=== PATIENT | female | born 1965 | race Caucasian/White ===

== ENCOUNTER 2023-06-08 10:58 | Emergency (ER) | payer BC, SELFPAY ==
[2023-06-08] VITALS (12 sets, daily range): BP systolic 119–148; BP diastolic 74–94; PULSE 68–80; RESP 16; TEMP 36.9; O2SAT 96–100; BMI 34.8
--- NOTE | 2023-06-08 11:31 | ED.CHESTPAIN ---
HPI - Chest Pain General Chief Complaint: Chest Pain Stated Complaint: chest pressure, sudden fatigue,nausea Time Seen by Provider: 06/08/23 10:59 History of Present Illness HPI narrative: This 57-year-old female comes in reporting some nausea and burping symptoms that started about 7:00 a.m. this morning. Then she began to have some chest pressure but not pain that started a couple hours prior to arrival. She had nausea but no vomiting. She does not report any lightheadedness, shortness of breath, diaphoresis, or exercise intolerance. She did have a surgery a couple weeks ago so she has been less active recently but states that she has not had any symptoms with exertion. Her symptoms today occurred while at rest. She does not have any cardiac history. She also does not have any cardiac risk factors. She did not think that this was something involving her vital organs but connected with [facility] and was instructed to come into the emergency department for evaluation. She arrives with normal vital signs. She does not describe any chest pressure currently but has some upper epigastric discomfort. Related Data Allergies Allergy/AdvReac Type Severity Reaction Status Date / Time Penicillins Allergy Intermediate Rash Verified 06/08/23 11:08 methylprednisolone AdvReac Headache Verified 06/08/23 11:08 Review of Systems Status of ROS Reports: 10 or more systems reviewed and unremarkable except as noted in History and below Narrative Constitutional: No fevers, no weight gain or loss. Eyes: No discharge. No vision changes. HENT: No congestion, no sore throat, no ear pain. Cardiovascular: No chest pain, no palpitations. She did have some chest pressure as described above. Respiratory: No shortness of breath, no wheezes, no cough. Gastrointestinal: No abdominal pain, no vomiting, no diarrhea. Genitourinary: No dysuria, no hematuria. Musculoskeletal: Normal range of motion. Skin: No rashes, no pruritis. Neurological: No dizziness, weakness, sensory change, speech change. Endo/Heme/Allergies: No bruising or bleeding. No polydipsia. Pysch: no suicidality, no anxiety, no insomnia. All other systems reviewed and are negative. [facility] Social History Smoking Status: Never smoker How often do you have a drink containing alcohol: 2-4 times a month How often do you have six or more drinks on one occasion: Never AUDIT-C Alcohol total score: 2 Non-prescribed substance use: denies use Exam Narrative Exam Narrative: Constitutional: Well-developed, well-nourished, no acute distress. HEENT: Normocephalic, atraumatic. Neck: Normal range of motion. Nontender. Supple. Heart: Regular. No murmurs. Normal rate. Intact distal pulses. Lungs: Clear to auscultation. No chest discomfort. No wheezes, rhonchi, or rales. Abdomen: Normal bowel sounds. Nontender. No rebound tenderness. Mild discomfort in the upper epigastric region. Genitalia: Deferred. Back: No midline tenderness. Normal range of motion. Extremities: Normal range of motion. No injury. Skin: Intact. No rash. Warm. No erythema or pallor. Neurologic: No altered sensation. No weakness. Alert and oriented. Psychiatric: No suicidality. No anxiety or depression. No insomnia. Nursing notes and vitals signs are reviewed. Const Vital Signs, click to edit/add: Vital Signs - 24 hr 06/08/23 11:08 06/08/23 11:13 06/08/23 11:14 Temperature 98.4 F Pulse Rate 80 75 Pulse Rate [Pulse Oximeter] 72 Respiratory Rate 16 Blood Pressure 139/87 Blood Pressure [Right Upper Arm] 148/94 H Pulse Oximetry 99 100 100 Oxygen Delivery Method Room Air 06/08/23 11:15 06/08/23 11:17 06/08/23 11:18 Temperature Pulse Rate 76 74 77 Pulse Rate [Pulse Oximeter] Respiratory Rate Blood Pressure 136/84 Blood Pressure [Right Upper Arm] Pulse Oximetry 99 99 99 Oxygen Delivery Method 06/08/23 11:30 06/08/23 11:32 06/08/23 11:47 Temperature Pulse Rate 73 71 68 Pulse Rate [Pulse Oximeter] Respiratory Rate Blood Pressure 132/86 125/74 Blood Pressure [Right Upper Arm] Pulse Oximetry 97 98 96 Oxygen Delivery Method Course Vital Signs Vital signs: Initial Vital Signs Temperature 98.4 F 06/08/23 11:08 Temperature Source Temporal Artery Scan 06/08/23 11:08 Pulse Rate 72 06/08/23 11:08 Respiratory Rate 16 06/08/23 11:08 Blood Pressure 148/94 H 06/08/23 11:08 Blood Pressure Mean 112 H 06/08/23 11:08 Blood Pressure Position Semi-Fowlers 06/08/23 11:08 Pulse Oximetry 99 06/08/23 11:08 Oxygen Delivery Method Room Air 06/08/23 11:08 Vital Signs Temperature 98.4 F 06/08/23 11:08 Pulse Rate 72 06/08/23 11:08 Respiratory Rate 16 06/08/23 11:08 Blood Pressure 148/94 H 06/08/23 11:08 Pulse Oximetry 99 06/08/23 11:08 Oxygen Delivery Method Room Air 06/08/23 11:08 Temperature 98.4 F 06/08/23 11:08 Pulse Rate 68 06/08/23 11:47 Respiratory Rate 16 06/08/23 11:08 Blood Pressure 125/74 06/08/23 11:47 Pulse Oximetry 96 06/08/23 11:47 Oxygen Delivery Method Room Air 06/08/23 11:08 MDM - Chest Pain MDM Narrative Medical decision making narrative: This patient reports some chest discomfort and upper epigastric discomfort as described above. She does not have any cardiac risk factors. She does not describe any exertional symptoms. Her EKG and lab results today are reassuring. Her troponin returns at 0. Her labs are also normal except for potassium just slightly low at 3.5. Most likely her symptoms are related to her GI tract. I advised using a proton pump inhibitor such as Prilosec, Nexium, or Prevacid. Or she may also use Pepcid or Tagamet. The patient is reassured with these results. She is okay to be discharged home. Lab Data Labs: Lab Results 06/08/23 06/08/23 Range/Units 11:15 11:30 WBC 6.01 (4.50-11.00) K/uL RBC 4.45 (4.00-5.20) m/uL Hgb 12.6 (12.0-16.0) gm/dL Hct 38.4 (33.0-51.0) % MCV 86 (80-100) fL MCH 28 (26-34) pg MCHC 33 (32-36) gm/dL RDW Coeff of Dane 14.1 (11.5-15.5) % Plt Count 263 (140-440) K/uL Neut % (Auto) 59.5 (42.0-72.0) % Lymph % (Auto) 27.5 (20-44) % Gaston % (Auto) 9.0 (0.0-11.0) % Eos % (Auto) 3.5 (0.0-7.0) % Baso % (Auto) 0.3 (0.0-3.0) % Neut # (Auto) 3.58 (1.7-7.0) K/uL Lymph # (Auto) 1.65 (0.90-2.90) K/uL Gaston # (Auto) 0.50 (0.00-0.90) K/UL Eos # (Auto) 0.21 (0.00-0.50) K/uL Baso # (Auto) 0.02 (0.00-0.30) K/uL Abs Immat Gran (auto) 0.01 (0.00-0.30) K/uL Imm/Tot Granulo (auto) 0.2 % Sodium 141 (135-149) mmol/L Potassium 3.5 L (3.6-5.1) mmol/L Chloride 103 (96-114) mmol/L Carbon Dioxide 26 (20-32) mmol/L Anion Gap 12 (7-15) mEq/L Glucose 105 (60-115) mg/dL POC Troponin I 0.00 L (0.01-0.04) ng/ml ECG Data Attestation: I personally reviewed and interpreted this ECG as follows: Interpretation: Normal sinus rhythm. Rate is 74 beats per minute. There are no ST or T-wave abnormalities. Discharge Plan Discharge Clinical Impression: Gastroesophageal reflux disease without esophagitis Patient Disposition: Home, Self-Care Condition: Improved Additional Instructions: Use proton pump inhibitors such as Prilosec, Nexium, or Prevacid as needed and directed. Follow up with MD or return if worsening. Follow Up/Referrals: Beata Saldana MD [Referring] - Stand Alone Forms: [employer] Info Instructions
[2023-06-08 11:46] LABS: Basophils Absolute Auto 0.02 K/uL (0.00-0.30); Basophils Percent Auto 0.3 % (0.0-3.0); Eosinophils Absolute Auto 0.21 K/uL (0.00-0.50); Eosinophils Percent Auto 3.5 % (0.0-7.0); Hematocrit 38.4 % (33.0-51.0); Hemoglobin* 12.6 gm/dL (12.0-16.0); Immature Granulocytes Abs Auto 0.01 K/uL (0.00-0.30); Immature Granulocytes Pct Auto 0.2 %; Lymphocytes Absolute Auto 1.65 K/uL (0.90-2.90); Lymphocytes Percent Auto 27.5 % (20-44); Mean Corpuscular HGB Conc 33 gm/dL (32-36); Mean Corpuscular Hemoglobin 28 pg (26-34); Mean Corpuscular Volume 86 fL (80-100); Neutrophils Absolute Auto 3.58 K/uL (1.7-7.0); Neutrophils Percent Auto 59.5 % (42.0-72.0); Platelet Count* 263 K/uL (140-440); RDW Coefficient of Variation % 14.1 % (11.5-15.5); Red Blood Count 4.45 m/uL (4.00-5.20); White Blood Count* 6.01 K/uL (4.50-11.00)
[2023-06-08 11:47] LABS: Potassium* 3.5 mmol/L (3.6-5.1); Sodium* 141 mmol/L (135-149)
[2023-06-08 11:48] LABS: Anion Gap 12 mEq/L (7-15); Carbon Dioxide* 26 mmol/L (20-32); Chloride* 103 mmol/L (96-114)
[2023-06-08 11:50] LABS: Glucose* 105 mg/dL (60-115)
[2023-06-08 11:58] LABS: Slide Review Reflex No
[2023-06-08 12:58] LABS: Blood Urea Nitrogen* 11 mg/dL (7-30); Calcium* 9.3 mg/dL (8.4-10.6); Creatinine* 0.7 mg/dL (0.5-1.5); Est. Creatinine Clearance* 88.31; Estimated Glomerular Filt Rate 102 ml/min
== END 2023-06-08 12:21 | disposition home or self-care (01) ==
PROVIDERS: Emergency Provider Emergency Medicine Emergency Medical Services; PCP Family Medicine
DX: K21.9 Gastro-esophageal reflux disease without esophagitis (principal)
CPT/HCPCS: 36415; 80048; 84484; 85025; 93005; 99284

== ENCOUNTER 2024-07-14 10:49 | Emergency (ER) | payer OTHER, BC, SELFPAY ==
[2024-07-14] VITALS (7 sets, daily range): BP systolic 123–144; BP diastolic 74–84; PULSE 71–82; RESP 18; TEMP 36.9; O2SAT 97–99; BMI 33.2
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
[2024-07-14] MEDS: ONDANSETRON ODT 4 MG TAB PO (11:55)
--- OUTSIDE RECORDS SUMMARY | 2024-07-14 12:20 | XMS_ITS | Encounter Summary ---
Author Organization [facility] Address [address] [place] [address] Care Team Providers Care Building Carpenter Name Role Phone Adri Davis M.D. Primary Care Provider [phone] Encounter Details Date Type Department Care Team (Late st Contact Info) Description 05/09/2024 Ancillary Procedure Department of Ophthalmology Social History Tobacco Use Types Packs/Day Years Used Date Smoking Tobacco: Never Smokeless Tobacco: Never Alcohol Use Standard Drinks/Week Comments Yes 2 (1 standard drink = 0.6 oz pure alcohol) Sometimes have a glass of hard cider or beer. [facility] Utilities Answer Date Recorded In the past 12 months has [facility] [employer], gas, oil, or water [employer] threatened to shut off services in your home? No 04/18/2024 Humiliation, Afraid, Rape, and Kick questionnair e Answer Date Recorded Within the last year, have y ou been afraid of your partner or ex-partner? No 11/10/2022 Within the last year, have y ou been humiliated or emotionally abused in other ways by your partner or ex-partner? No Within the last year, have y ou been kicked, hit, slapped, or otherwise physically hurt by your partner or ex-partner? No 11/10/2022 Within the last year, have y ou been raped or forced to have any kind of sexual activity by your partner or ex-partner? No 11/10/2022 Social Connection and Isolat ion Panel [NHANES] Answer Date Recorded In a typical week, how many times do you talk on the phone with family, friends, or neighbors? More than three times a week 11/10/2022 How often do you get togethe r with friends or relatives? More than three times a week 11/10/2022 How often do you attend chur ch or methodist services? 1 to 4 times per year 11/10/2022 Do you belong to any clubs o r organizations such as yazidi groups, unions, fraternal or athletic groups, or school groups? Yes 11/10/2022 How often do you attend meet ings of the clubs or organizations you belong to? More than 4 times per year 11/10/2022 Are you , , di vorced, , never , or living with a partner? Living with partner 11/10/2022 AUDIT-C Answer Date Recorded Q1: How often do you have a drink containing alc ohol? 2-4 times a month 11/10/2022 Q2: How many drinks containi ng alcohol do you have on a typical day when you are drinking? 1 or 2 11/10/2022 Q3: How often do you have si x or more drinks on one occasion? Never 11/10/2022 Overall Financial Resource Strain (CARDIA) Answe r Date Recorded How hard is it for you to pa y for the very basics like food, housing, medical care, and heating? Not hard at all 11/10/2022 PHQ-2 Answer Date Recorded PHQ-2 Score 0 04/24/2024 [facility] - Occupational Stress Questionnaire Answer Date Recorded Do you feel stress - tense, restless, nervous, or anxious, or unable to sleep at night because your mind is troubled all the time - these days? Only a little 11/10/2022 Exercise Vital Sign Answer Date Recorde d On average, how many days pe r week do you engage in moderate to strenuous exercise (like a brisk walk)? 7 days 02/28/2024 On average, how many minutes do you engage in exercise at this level? 40 min 02/28/2024 Hunger Vital Sign Answer Date Recorded Within the past 12 months, y ou worried that your food would run out before you got the money to buy more. Never true 04/18/20 24 Within the past 12 months, t he food you bought just didn't last and you didn't have money to get more. Never true 04/18/2024 PRAPARE - Transportation Answer Date Re corded In the past 12 months, has l ack of transportation kept you from medical appointments or from getting medications? No 04/06 In the past 12 months, has l ack of transportation kept you from meetings, work, or from getting things needed for daily living? No 04/18/2024 Depression Answer Date Recor ded PHQ-9 Total Score (max 27) 1 04/24 Nutrition Answer Date Recorded On average, how many serving s of fruits and vegetables do you eat per day (serving size is equal to 1 cup or approximately the size of a tennis ball)? 3-5 02/28/2024 Dental Answer Date Recorded Dental: Regular Dentist Yes 10/29/19 Employment Answer Date Recorded Employment status Employed and actively working without restrictions 02/28/2024 Housing Stability Answer Date Recorded What is your living situation today? I have a [facility] place to live 04/18/2024 Education Answer Date Recorded What is the highest level of school you have completed or the highest degree you have received? 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 The clinical documentation to support these images can be found on the encounter that produced images. us Provider Not In System IMG NON RAD IMAGING PROCE DURES Final Result [facility] NA documented in this encounter Visit Diagnoses Not on filedocumented in this encounter Additional Health Concerns Assessment Noted Time PHQ-9 Depression Total Score: 1 04/24/20 24 10:44 AM CDT documented as of this encounter Care Teams Building Carpenter Relationship Specialty Start Date End Date Adri Davis M.D. [address] [place] [address] [phone] PCP - General Family Medicine 10/28/22 documented as of this encounter
--- OUTSIDE RECORDS SUMMARY | 2024-07-14 12:20 | XMS_ITS | Encounter Summary ---
Author Organization [facility] Address [address] [place] [address] Care Team Providers Care Mba Intern Name Role Phone Adri Davis M.D. Primary Care Provider [phone]- [phone] Reason for Visit * Reason Onset Date Comments Med Refill 06/20/2024 Encounter Details Date Type Department Care Team (Late st Contact Info) Description 06/20/2024 Refill Department of Family Medicine, [facility], in [address] [phone] Adri Davis M.D. [address] [place] [phone] Med Refill Social History Tobacco Use Types Packs/Day Years Used Date Smoking Tobacco: Never Smokeless Tobacco: Never Alcohol Use Standard Drinks/Week Comments Yes 2 (1 standard drink = 0.6 oz pure alcohol) Sometimes have a glass of hard cider or beer. [facility] Utilities Answer Date Recorded In the past 12 months has [employer], gas, oil, or water company threatened to shut off services in your [...] often do you attend chur ch or hinduism services? 1 to 4 times per year 11/10/2022 Do you belong to any clubs o r organizations such as buddhist groups, unions, fraternal or athletic groups, or [...] Answer Date Recorded PHQ-2 Score 0 04/24/2024 [facility] Occupat ional [facility] - Occupational Stress [...] money to buy more. Never true 04/18/20 Within the past 12 months, t he [...] your living situation today? I have a [facility] place to live 04/18/2024 Education Answer Date Recorded What is the highest level of school you have completed or the highest degree you have received? 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 Nurse review: Med Refill Team is unable to forward request to provider. Drug Change Request for Lexapro. Patient recently requested a refill for sertraline because lexaprowas not approved by insurance. Primary Provider: Adri Davis M.D. documented in this encounter Plan of Treatment Not on file documented as of this encounter Visit Diagnoses Not on filedocumented in this encounter Additional Health Concerns Assessment Noted Time PHQ-9 Depression Total Score: 1 04/24/20 24 10:44 AM CDT documented as of this encounter Care Teams Mba Intern Relationship Specialty Start Date End Date Adri Davis M.D. [address] [place] [address] [phone] PCP - General Family Medicine 10/28/22 documented as of this encounter
--- OUTSIDE RECORDS SUMMARY | 2024-07-14 12:20 | XMS_ITS ---
Author Organization [facility] Address [address] [place] [address] Care Team Providers Care Aircraft Inspection Record Clerk Name Role Phone Unavailable Unavailable Unavailable Surgery Details Not on file Complications Check Surgery Details section. Procedure Estimated Blood Loss Check Surgery Details section. Procedure Findings Check Surgery Details section. Procedure Specimens Taken Check Surgery Details section.
--- OUTSIDE RECORDS SUMMARY | 2024-07-14 12:20 | XMS_ITS | Encounter Summary ---
Author Organization [facility] Address [address] [place] [address] Care Team Providers Care Windsmith Name Role Phone Adri Davis M.D. Primary Care Provider [phone]- [phone] Reason for Visit * Reason Onset Date Comments PandaDoc Form 06/01/2024 Gwyneber - PT 04/07 1 Encounter Details Date Type Department Care Team (Latest Contact Info) Description 06/01/2024 Clinical Communication Department of Family Medicine, [facility], in [address] [phone] Adri Davis M.D. [address] [place] [phone] PandaDoc Form (Wieber - PT 04/26) Social History Tobacco Use Types Packs/Day Years Used Date Smoking Tobacco: Never Smokeless Tobacco: Never Alcohol Use Standard Drinks/Week Comments Yes 2 (1 standard drink = 0.6 oz pure alcohol) Sometimes have a glass of hard cider or beer. [facility] Utilities Answer Date Recorded In the past 12 months has [facility] [employer], gas, oil, or water [employer] threatened to shut off services in your [...] 11/10/2022 How often do you attend chur or gnosticism services? 1 to 4 times per year 11/10/2022 Do you belong to any clubs o r organizations such as lutheran groups, unions, fraternal or athletic groups, or [...] Answer Date Recorded PHQ-2 Score 0 04/24/2024 [facility] - [...] your living situation today? I have a [facility] place to live 04/18/2024 Education Answer Date Recorded What is the highest level of school you have completed or the highest degree you have received? 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 Form faxed back to the listed facility. Scanned into [facility] * Telephone Encounter - Rosi Healy - 06/01/2024 5:06 PM CDT Form was routed to Dr Davis for electronic review/signature. MANAGER LINUX: [facility] Physical Therapy PHONE NUMBER: [phone] INFO REQUESTED: PT 04/26 INSTRUCTIONS: Fax form to [phone] documented in this encounter Plan of Treatment Not on file documented as of this encounter Visit Diagnoses Not on filedocumented in this encounter Additional Health Concerns Assessment Noted Time PHQ-9 Depression Total Score: 1 04/24/20 24 10:44 AM CDT documented as of this encounter Care Teams Windsmith Relationship Specialty Start Date End Date Adri Davis M.D. [address] [place] [phone] PCP - General Family Medicine 10/28/22 documented as of this encounter
--- OUTSIDE RECORDS SUMMARY | 2024-07-14 12:20 | XMS_ITS | Encounter Summary ---
Author Organization [facility] Address [address] [place] [address] Care Team Providers Care Parachute Panel Joiner Name Role Phone Adri Davis M.D. Primary Care Provider [phone]- [phone] Encounter Details Date Type Department Care Team (Latest Contact Info) Description 05/09/2024 2:10 PM CDT Office Visit Division of Endocrinology in [place], [place] [address] [place] [phone] María Elena Price M.D. [address] [place] [phone] Nodule Thyroid Nontoxic (Primary Dx) Social History Tobacco Use Types Packs/Day Years Used Date Smoking Tobacco: Never Smokeless Tobacco: Never Alcohol Use Standard Drinks/Week Comments Yes 2 (1 standard drink = 0.6 oz pure alcohol) Sometimes have a glass of hard cider or beer. [facility] Utilities Answer Date Recorded In the past 12 months has [employer] gas, oil, or water [employer] threatened to shut off services in your [...] often do you attend chur ch or oriental orthodox services? 1 to 4 times per year 11/10/2022 Do you belong to any clubs o r organizations such as yarsanism groups, unions, fraternal or athletic groups, or [...] Answer Date Recorded PHQ-2 Score 0 04/24/2024 [facility] - Occupational Stress [...] your living situation today? I have a [facility] place to live 04/18/2024 Education Answer Date Recorded What is the highest level of school you have completed or the highest degree you have received? 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 - 05/09/2024 2:10 PM CDT SUBJECTIVE HISTORY OF PRESENT ILLNESS I visited with Esperanza along with Dr. Morgan to review with her the results of our case [facility]with [facility]. ASSESSMENT / PLAN #1 Hypothyroidism, on levothyroxine therapy Good control and no need for changes here. #2 Thyroid nodules These were not suspicious last year, but I think it is reasonable to proceed with ultrasound, as wediscussed. #3 Eye dryness with concerns about thyroid eye disease At this point, no clear features for thyroid eye disease. Recommendations made by Dr. Morgan aboutdealing with the dryness. I will follow with her once the antibody levels are available and they will be a useful tool if we need to keep a closer eye on her autoimmune status. No charge, same-day visit. María Elena Price M.D. CT CT Job ID: [id number] documented in this encounter Plan of Treatment Not on file documented as of this encounter Visit Diagnoses Diagnosis Nodule Thyroid Nontoxic- Primary documented in this encounter Additional Health Concerns Assessment Noted Time PHQ-9 Depression Total Score: 1 04/24/20 24 10:44 AM CDT documented as of this encounter Care Teams Parachute Panel Joiner Relationship Specialty Start Date End Date Adri Davis M.D. [address] [place] [phone] PCP - General Family Medicine 10/28/22 documented as of this encounter
--- OUTSIDE RECORDS SUMMARY | 2024-07-14 12:20 | XMS_ITS | Referral Summary ---
Author Organization [facility] Address [address] [place] [address] Care Team Providers Care Organ Builder Name Role Phone Adri Davis M.D. Primary Care Provider [phone]- [phone] Source Comments Patient records contain information from all sites at [facility]. For routine questions regarding patient records, call [phone] during business hours, M-F 8:00 AM - 5:00 PM Central Time. Record requests for emergency care only can be directed to [phone] at any time.[facility] Encounters Date Type Department Care Team Description 07/14/2024 Nurse Triage Department of Family [facility], [facility], [address] [phone] Yasmeen Viera R.N. Altered Mental Status 06/20/2024 Refill Department of Family Medicine, [facility], [address] [phone] Adri Davis M.D. Med Refill 06/01/2024 Clinical Communication Department of Family Medicine, [facility], [address] [phone] Adri Davis M.D. PandaDo Form (Ninaer - PT 04/26) 05/27/2024 Refill Department of Family Medicine, [facility], in [place] [phone] Adri Davis M.D. Med Refill 05/16/2024 Ancillary Procedure Department of Ophthalmology 05/09/2024 Ancillary Procedure Department of Ophthalmology 05/09/2024 2:10 PM CDT Office Visit Division of Endocrinology in [place], [place] [address] [place] [phone] María Elena Price M.D. Nodule Thyroid Nontoxic (Primary Dx) 05/09/2024 1:30 PM CDT Office Visit Department of Ophthalmology in [place], [place] [address] [place] [phone] Mary Morgan M.D. Hypothyroidism Acquired (Primary Dx) 05/09/2024 10:00 AM CDT Comprehensive Visit Division of Endocrinology in [place], [place] [address] [place] [phone] María Elena Price M.D. Graves' Disease 05/09/2024 6:49 AM CDT - 05/09/2024 11:59 PM CDT Hospital Encounter Department of Laboratory Medicine and Pathology, [facility] in [place], [place] [address] [place] [phone] Hardy Willett M.D. Graves' Disease Discharge Disposition: Home or Self Care 05/09/2024 9:00 AM CDT Comprehensive Visit Department of Ophthalmology in [address] [phone] Mary Morgan M.D. Hypothyroidism Acquired 05/08/2024 Documentation Department of Ophthalmology in [address] [phone] Tony Verduzco M.D. 05/02/2024 Refill Department of Family Medicine, [facility], in [address] [address] Adri Davis M.D. Med Refill 04/25/2024 9:21 AM CDT - 04/25/2024 11:59 PM CDT Hospital Encounter Department of Radiology in [address] [phone] Adri Davis M.D. Pain Wrist Left Discharge Disposition: Home or Self Care 04/25/2024 8:30 AM CDT Office Visit Department of Family Medicine, [facility], in [address] [phone] Adri Davis M.D. Health Maintenance Examination Adult (Primary Dx); Asymptomatic Menopausal State; Screening Osteoporosis; Pain Wrist Left; Hypermobility Syndrome; Anxiety Generalized Disorder; Depression Major One Episode Full Remission (HCC); Asthma Mild Intermittent (HCC) Discharge Disposition: Home or Self Care 04/24/2024 8:36 AM CDT - 04/24/2024 11:59 PM CDT Hospital Encounter Department of Radiology in [address] [phone] Adri Davis M.D. Screening Mammogram Average Risk Patient Discharge Disposition: Home or Self Care 04/24/2024 8:30 AM CDT - 04/24/2024 8:35 AM CDT Hospital Encounter Department of Laboratory Medicine in [address] [phone] Adri Davis M.D. Hyperlipidemia Discharge Disposition: Home or Self Care from Last 3 Months Allergies Active Allergy Reactions Criticality Noted Date Comments Rhome Other (see comments) 04/26/2021 Thyroid reaction Rhome Starch Other (see comments) 06/26/2021 Doxycycline GI intolerance 10/27/2018 Milk Other (see comments) 03/26/2023 Cow milk Nickel Itching 11/16/2022 Penicillins Shortness of breath (Reselect Reaction),Hives (Reselect Reaction),Itching,Rash 04/18/2003 PN: LW Reaction: Rash, Generalized PN: LW Reaction: Rash, Generalized Prednisone Headache 04/18/2003 Tapioca Other (see comments),Shortness of breath (Reselect Reaction) 10/20/2022 Cassava/thyroid reaction Medications * This document contains information received from the source organization and may not represent a complete record from that organization. acetaminophen (TYLENOL) 500 mg tablet Take 1,000 mg by mouth as needed. 9 Active loratadine (CLARITIN) 10 mg tablet Take 10 mg by mouth as needed. 2 Active olopatadine (PATANOL) 0.1 % ophthalmic solution Administer 1 drop into both eyes as needed. 6 Active multivitamin capsule Take by mouth daily. 4 Active levothyroxine sodium (TIROSINT) 75 mcg capsule Take 1 capsule (75 mcg total) by mouth every morning before breakfast. 90 capsule 3 3 Active magnesium citrate solution Take by mouth once. Active ipratropium-al buteroL (Combivent Respimat) 20-100 mcg/actuation inhaler Inhale 1 puff as needed for wheezing. 4 g 3 4 Active sertraline (Zoloft) 25 mg tablet Take 0.5 tablets (12.5 mg total) by mouth daily. 45 tablet 3 4 Active escitalopram (Lexapro) 5 mg tablet Take 1 tablet (5 mg total) by mouth daily. 90 tablet 3 4 Active escitalopram (Lexapro) 5 mg tablet Take 1 tablet (5 mg total) by mouth daily. 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 Follow-up at 1, 2, 3 and 5 year intervals recommended. Next due 10/2023. Depression Major One Episode Full Remission 02/2012 Anxiety Generalized Disorder 05/28/2009 Asthma Mild Intermittent 03/11/2006 Overview (03/26/2023): URI triggers. Hyperlipidemia 03/13/2005 Immunizations Name Administration Dates Next Due H1N1 All Forms 08/14/2009 HepA Adult 02/08/2013 HepB Adult (HEPLISAV-B) 04/25/2024 Influenza TIV (IM) 06/17/2012,08/06/1999 Influenza, Injectable, Quadrivalent 06/14/2019,1 Influenza, Seasonal, Injectable 06/17/2012,08/06 Influenza, Unspecified 06/22/2016,2011,06/13/2004,1998 PCV13 09/08/1999 PPSV23 06/22/2016,09/08/1999 RZV (SHINGRIX) 02/26/2020,11/09/2019 Td (Adult), adsorbed 10/27/2018,04/19/2003 Tdap 04/29/2009 Ty21a (oral) 02/08/2013 influenza trivalent vaccine (6 months and older)(PF) 06/13/2004 influenza vaccine quad (FLUZONE/FLUARIX) (6 months and older)(PF) 08/23/2023,06/16/2022,06/19/2021,2018,09/09/2017 Social History Tobacco Use Types Packs/Day Years Used Date Smoking Tobacco: Never Smokeless Tobacco: Never Tobacco Cessation:Counseling Given: Not Answered Alcohol Use Standard Drinks/Week Comments Yes 2 (1 standard drink = 0.6 oz pure alcohol) Sometimes have a glass of hard cider or beer. [facility] [employer] Answer Date Recorded In the past 12 months has e [employer], oil, or water [employer] threatened to shut off services in your [...] often do you attend chur ch or cheondoism services? 1 to 4 times per year 11/10/2022 Do you belong to any clubs o r organizations such as yazidism groups, unions, fraternal or athletic groups, or [...] Answer Date Recorded PHQ-2 Score 0 04/24/2024 [facility] - Occupational Stress Questionnaire Answer Date Recorded [...] your living situation today? I have a [facility] place to live 04/18/2024 Education Answer Date Recorded What is the highest level of school you have completed or the highest degree you have received? 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 Gender Identity Female 11/21/2022 8:10 AM CDT Sexual Orientation Straight 11/21/2022 8: 10 AM CDT Last Filed Vital Signs Vital Sign Reading Time Taken Comments Blood Pressure 116/77 04/25/2024 8:26 AM CDT Pulse 80 04/25/2024 8:26 AM CDT Temperature 37.1 ??C (98.8 ??F) 04/25/2024 8:26 AM CD T Respiratory Rate 18 05/05/2023 9:04 AM CDT Oxygen Saturation 98% 04/25/2024 8:26 AM CDT Inhaled Oxygen Concentration - - Weight 95 kg (209 lb 7 oz) 04/25/2024 8:26 AM CD T Height 170.3 cm (5' 7.05) 04/25/2024 8:26 AM CD T Body Mass Index 32.76 04/25/2024 8:26 AM CDT Plan of Treatment Not on file Medical Devices Implanted Type Area Animal Killer Device Identifier Shelf Expiration Date Model / Serial / Lot Hip Implant Hip Implant Bilateral : Hip Procedures Procedure Name Priority Date/Time Associated Diagnosis Comments OPHTHALMOLOGY IMAGE EXAM Routine 05/16/2024 12:00 AM CDT PHOTOGRAPHY - MEDICAL Routine 05/09/2024 11:10 AM CDT Graves' Disease CBC WITH DIFFERENTIAL, B Routine 05/09/2024 7:01 AM CDT Graves' Disease THYROID-STIMULATING IMMUNOGLOBULIN (TSI), S Routine 05/09/2024 7:00 AM CDT Graves' Disease THYROTROPIN RECEPTOR AB, S Routine 05/09/2024 7:00 AM CDT Graves' Disease ALANINE AMINOTRANSFERASE (ALT), S/P Routine 05/09/2024 7:00 AM CDT Graves' Disease ALKALINE PHOSPHATASE, S/P Routine 05/09/2024 7:00 AM CDT Graves' Disease THYROID-STIMULATING HORMONE-SENSITIVE (S-TSH) Routine 05/09/2024 7:00 AM CDT Graves' Disease T4 (THYROXINE), FREE, S Routine 05/09/2024 7:00 AM CDT Graves' Disease OPHTHALMOLOGY IMAGE EXAM Routine 05/09/2024 12:00 AM CDT DX WRIST LEFT 3+ VIEWS RAD - Routine (most inpatients and all outpatients) 04/25/2024 9:30 AM CDT Pain Wrist Left LIPID PANEL, S Routine 04/24/2024 8:58 AM CDT Hyperlipidemia BI BREAST SCREENING BILATERAL WITH TOMOSYNTHESIS RAD - Routine (most inpatients and all outpatients) 04/24/2024 8:49 AM CDT Screening Mammogram Average Risk Patient BASIC METABOLIC PANEL, S/P Routine 05/05/2023 9:42 AM CDT Preoperative Exam HPV WITH GENOTYPING, PCR, THINPREP Routine 03/26/2023 12:31 PM CDT from Last 3 Months or Most Recently Relevant to Health Maintenance Results * Eyes External-Ophthalmology Image Exam (05/16/2024 12:00 AM CDT) Only the most recent of2 resultswithin the time period is included. Narrative IIMS - 05/16/2024 12:44 PM CDT This order has been created and auto-finalized to support the import of images acquired without order. The clinical documentation to support these images can be found on the encounter that produced images. us Provider Not In System IMG NON RAD IMAGING PROCE DURES Final Result IITX NA * CBC with Differential, Blood (05/09/2024 7:01 AM CDT) Hemoglobin 12.5 11.6 - 15.0 g/dL 05/09/2024 7:42 AM CDT DTL Hematocrit 38.8 35.5 - 44.9 % 05/09/2024 7:42 AM CDT DTL Erythrocytes 4.42 3.92 - 5.13 x10(12)/L 05/09/2024 7:42 AM CDT DTL MCV 87.8 78.2 - 97.9 fL 05/09/2024 7:42 AM CDT DTL RBC Distrib Width 14.3 12.2 - 16.1 % 05/09/2024 7:42 AM CDT DTL Platelet Count 272 157 - 371 x10(9)/L 05/09/2024 7:42 AM CDT DTL Leukocytes 5.2 3.4 - 9.6 x10(9)/L 05/09/2024 7:42 AM CDT DTL Neutrophils 2.93 1.56 - 6.45 x10(9)/L 05/09/2024 7:42 AM CDT DHPM Lymphocytes 1.43 0.95 - 3.07 x10(9)/L 05/09/2024 7:42 AM CDT DTL Monocytes 0.62 0.26 - 0.81 x10(9)/L 05/09/2024 7:42 AM CDT DTL Eosinophils 0.21 0.03 - 0.48 x10(9)/L 05/09/2024 7:42 AM CDT DTL Basophils 0.03 0.01 - 0.08 x10(9)/L 05/09/2024 7:42 AM CDT DTL Blood (Blood, Venous) 05/09/2024 7:01 AM CDT 05/09/2024 7:32 AM CDT us Hardy Willett M.D. LAB BLOOD ADD-ON Final Resu lt [facility] [address] [place] [address], [facility] [address] [place] [address] [facility] [address] [place] [address] * Thyroid-Stimulating Immunoglobulin (TSI) (05/09/2024 7:00 AM CDT) Pathologist [facility] Thyroid-Stimula ting Immunoglob, S <1.0 <=1.3 TSI index 05/22/2024 1:16 PM CDT [facility] Blood (Blood, Venous) 05/09/2024 7:00 AM CDT 05/09/2024 10:55 AM CDT us Hardy Willett M.D. LAB BLOOD ADD-ON Final Resu lt [facility] [address] [place] [address] [facility] [address] [place] [address] [place] [address] * Thyrotropin Receptor Antibody (05/09/2024 7:00 AM CDT) Thyrotropin Receptor Ab, S <1.10 0.00 - 1.75 IU/L 05/09/2024 5:05 PM CDT [facility] Comment: ----ADDITIONAL INFORMATION---- At a decision limit of 1.75 IU/L, this assay has 97% sensitivity and 99% specificity for detection of Graves' disease. In healthy individuals and in patients with thyroid disease without diagnosis of Graves' disease, the upper limit of anti-TSHR values are 1.22 IU/L and 1.58 IU/L, respectively (97.5th percentiles). Blood (Blood, Venous) 05/09/2024 7:00 AM CDT 05/09/2024 3:58 PM CDT Hardy Willett M.D. LAB BLOOD ADD-ON Final Resu lt [facility] [address] [place] [address] [facility] [address] [place] [address] * ALT (Alanine Aminotransferase) (05/09/2024 7:00 AM CDT) Alanine Aminotransferase (ALT), S 21 7 - 45 U/L 05/09/2024 8:27 AM CDT DT Blood (Blood, Venous) 05/09/2024 7:00 AM CDT 05/09/2024 7:49 AM CDT Hardy Willett M.D. LAB BLOOD ADD-ON Final Resu lt [facility] [address] [place] [address], [place] [facility] [address] [place] [address] * S-TSH (Thyroid-Stimulating Hormone - Sensitive) (05/09/2024 7:00 AM CDT) TSH, Sensitive 2.5 0.3 - 4.2 mIU/L 05/09/2024 8:27 AM CDT DT Blood (Blood, Venous) 05/09/2024 7:00 AM CDT 05/09/2024 7:49 AM CDT Hardy Willett M.D. LAB BLOOD ADD-ON Final Resu lt Performing Organization Address City/[facility]/ZIP Co de Phone Number [facility] [address] [place] [address], [facility] [address] [place] [address] * T4 (Thyroxine), Free (05/09/2024 7:00 AM CDT) T4 (Thyroxine), Free, S 1.1 0.9 - 1.7 ng/dL 05/09/2024 8:27 AM CDT DTL Blood (Blood, Venous) 05/09/2024 7:00 AM CDT 05/09/2024 7:49 AM CDT us Hardy Willett M.D. LAB BLOOD ADD-ON Final Resu lt Performing Organization Address City/[facility]/RUST Co de Phone Number [facility] [address] [place] [address], [facility] [address] [place] [address] * Alkaline Phosphatase (05/09/2024 7:00 AM CDT) Alkaline Phosphatase, S 54 35 - 104 U/L 05/09/2024 8:27 AM CDT DTL Blood (Blood, Venous) 05/09/2024 7:00 AM CDT 05/09/2024 7:49 AM CDT us Hardy Willett M.D. LAB BLOOD ADD-ON Final Resu lt Performing Organization Address City/[facility]/ZIP Co de Phone Number [facility] [address] [place] [address], [facility] [address] [place] [address] * DX Wrist Left 3+ Views (04/25/2024 9:30 AM CDT) Anatomical Region Laterality Modality Upper Extremity, Wrist, Musc uloskeletal RST LOS, Musculoskeletal ARZ LOS, Muskuloskeletal FLA LOS Left Digit al Radiography Impressions 04/25/2024 9:38 AM CDT No evidence of acute fracture or malalignment. Mild scattered polyarticular degenerative changes. Narrative 04/25/2024 9:38 AM CDT EXAM: DX WRIST LEFT 3+ VIEWS Procedure Note Epifanio Fish M.D. - 04/25/2024 EXAM: DX WRIST LEFT 3+ VIEWS IMPRESSION: No evidence of acute fracture or malalignment. Mild scatteredpolyarticular degenerative changes. us Adri Davis M.D. IMG DIAGNOSTIC IMAGING PRO CEDURES Final Result * (ABNORMAL) Lipid Panel (04/24/2024 8:58 AM CDT) Triglycerides 120 mg/dL 04/24/2024 9:21 AM CDT [facility] Comment: ----REFERENCE VALUE---- Normal: <150 mg/dL Borderline High: 150-199 mg/dL High: 200-499 mg/dL Very High: > or =500 mg/dL Cholesterol, Total 226(H) mg/dL 2023 9:21 AM CDT [facility] Comment: ----REFERENCE VALUE---- Desirable: < 200 mg/dL Borderline High: 200 - 239 mg/dL High: > or = 240 mg/dL Cholesterol, LDL, Calculated 140(H) mg/dL 04/24/2024 9:21 AM CDT [facility] Comment: ----REFERENCE VALUE---- Desirable: <100 mg/dL Above Desirable: 100-129 mg/dL Borderline High: 130-159 mg/dL High: 160-189 mg/dL Very High: >=190 mg/dL ----ADDITIONAL INFORMATION---- LDL cholesterol calculated using the Arguello/NIH equation. Cholesterol, HDL 65 >=50 mg/dL 04/24/20 9:21 AM CDT [facility] Cholesterol, Non-HDL, Calculated 161(H) mg/dL 04/24/2024 9:21 AM CDT [facility] Comment: ----REFERENCE VALUE---- Desirable: <130 mg/dL Above Desirable: 130-159 mg/dL Borderline High: 160-189 mg/dL High: 190-219 mg/dL Very High: > or =220 mg/dL Fasting (8 HR or more) Yes 04/24/2024 8:58 AM CDT [facility] Blood (Blood, Venous) 04/24/2024 8:58 AM CDT 04/24/2024 9:01 AM CDT us Adri Davis M.D. LAB BLOOD ADD-ON Final Res ult [facility] [address] [place] [address], [facility] in [address] [address] * BI Breast Screening Bilateral with Tomosynthesis (04/24/2024 8:49 AM CDT) Anatomical Region Laterality Modality Breast, Breast Imaging RST L OS, Breast Imaging ARZ LOS, Breast Imaging FLA LOS Bilateral Mammography Impressions 04/24/2024 3:23 PM CDT Negative. RECOMMENDATION: ??Annual Screening Mammogram ASSESSMENT: ??BI-RADS: 1: Negative. Narrative 04/24/2024 3:23 PM CDT EXAM: ??BI BREAST SCREENING BILATERAL WITH TOMOSYNTHESIS Current study was evaluated with a Computer Aided Detection (CAD) system. INDICATION: ??Screening mammogram. COMPARISON: ??Prior exam(s) were available and reviewed for comparison. DENSITY: ??b. There are scattered areas of fibroglandular density. FINDINGS: ??No mammographic findings of malignancy. Procedure Note Tina Tidwell D.O. - 04/24/2024 EXAM: BI BREAST SCREENING BILATERAL WITH TOMOSYNTHESIS Current study was evaluated with a Computer Aided Detection (CAD) system. INDICATION: Screening mammogram. COMPARISON: Prior exam(s) were available and reviewed for comparison. DENSITY: b. There are scattered areas of fibroglandular density. FINDINGS: No mammographic findings of malignancy. IMPRESSION: Negative. RECOMMENDATION: Annual Screening Mammogram ASSESSMENT: BI-RADS: 1: Negative. us Adri Davis M.D. IMG BI PROCEDURES Final Re sult * Basic Metabolic Panel (05/05/2023 9:42 AM CDT) Potassium, P 4.1 3.6 - 5.2 mmol/L 05/05/2023 10:08 AM CDT [facility] Sodium, P 138 135 - 145 mmol/L 05/05/2023 10:08 AM CDT [facility] Chloride, P 103 98 - 107 mmol/L 05/05/2023 10:08 AM CDT [facility] Bicarbonate, P 27 22 - 29 mmol/L 05/05/2023 10:08 AM CDT [facility] Anion Gap, P 8 7 - 15 05/05/2023 10:08 AM CDT [facility] BUN (Blood Urea Nitrogen), P 10 6 - 21 mg/dL 05/05/2023 10:08 AM CDT [facility] Creatinine 0.82 0.59 - 1.04 mg/dL 05/05/2023 10:08 AM CDT [facility] Estimated GFR (eGFR) 84 >=60 mL/min/BSA 05/05/2023 10:08 AM CDT [facility] Comment: Estimated GFR calculated using the 2020 CKD_EPI creatinine equation. Calcium, Total, P 9.7 8.6 - 10.0 mg/dL 05/05/2023 10:08 AM CDT [facility] Glucose, P 101 70 - 140 mg/dL 05/05/2023 10:08 AM CDT [facility] Blood (Blood, Venous) 05/05/2023 9:42 AM CDT 05/05/2023 9:44 AM CDT us Simón Pitt M.D., Ph.D. LAB BLOOD ADD-ON Final Result [facility] [address] [place] [id number], [place] [facility] in [address] [address] * HPV with Genotyping, PCR, ThinPrep (03/26/2023 12:31 PM CDT) HPV with Genotyping, ThinPrep, PCR Negative Negative 03/29/2023 2:24 PM CDT [facility] Comment: Negative for high risk HPV by nucleic acid amplification. ??The following high risk HPV types were not detected: 16, 18, 31, 33, 35, 39, 45, 51, 52, 56, 58, 59, 66, and 68 This result does not rule out HPV in the patient, as the sensitivity of the test depends on the timing of the specimen collection and the quality of the specimen. Result should be correlated with patient's history, clinical presentation, and LIQUID HYDROGEN PLANT OPERATOR cytology report. 03/26/2023 12:3 1 PM CDT 03/29/2023 10:19 AM CDT Adri Davis M.D. LAB MICROBIOLOGY - GENERAL ORDERABLES Final Result [facility] [address] [place] [address], [facility] ECLR [address] [place] [phone] from Last 3 Months or Most Recently Relevant to Health Maintenance Insurance [facility] [employer] Advance Directives For more information, please contact: [phone] Documents on File Type Date Recorded Patient Reserve Operator Expl anation Advance Directives 01/16/2013 12:00 AM Leg acy document. See document viewer. Care Teams Organ Builder Relationship Specialty Start Date End Date Adri Davis M.D. [address] [place] [phone] PCP - General Family Medicine 10/28/22
--- OUTSIDE RECORDS SUMMARY | 2024-07-14 12:20 | XMS_ITS | Encounter Summary ---
Author Organization [facility] Address [address] [place] [address] Care Team Providers Care Presser All Around Name Role Phone Adri Davis M.D. Primary Care Provider [phone] Encounter Details Date Type Department Care Team (Late st Contact Info) Description 05/16/2024 Ancillary Procedure Department of Ophthalmology Social History Tobacco Use Types Packs/Day Years Used Date Smoking Tobacco: Never Smokeless Tobacco: Never Alcohol Use Standard Drinks/Week Comments Yes 2 (1 standard drink = 0.6 oz pure alcohol) Sometimes have a glass of hard cider or beer. [facility] Utilities Answer Date Recorded In the past 12 months has [facility] [employer], gas, oil, or water [employer] threatened to shut off services in your [...] often do you attend chur ch or faith services? 1 to 4 times per year 11/10/2022 Do you belong to any clubs o r organizations such as restorationism groups, unions, fraternal or athletic groups, or [...] Answer Date Recorded PHQ-2 Score 0 04/24/2024 [facility] - Occupational Stress [...] your living situation today? I have a [facility] place to live 04/18/2024 Education Answer Date Recorded What is the highest level of school you have completed or the highest degree you have received? 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 [address] [place] [phone] PCP - General Family Medicine 10/28/22 documented as of this encounter
--- OUTSIDE RECORDS SUMMARY | 2024-07-14 12:20 | XMS_ITS | Encounter Summary ---
Author Organization [facility] Address [address] [place] [address] Care Team Providers Care Developer Evangelist Name Role Phone Adri Davis M.D. Primary Care Provider +1- [phone] Reason for Visit * Reason Comments Med Refill Encounter Details Date Type Department Care Team (Late st Contact Info) Description 05/27/2024 Refill Department of Family Medicine, [facility], in [address] [phone] Adri Davis M.D. [address] [place] [phone] Med Refill Social History Tobacco Use Types Packs/Day Years Used Date Smoking Tobacco: Never Smokeless Tobacco: Never Alcohol Use Standard Drinks/Week Comments Yes 2 (1 standard drink = 0.6 oz pure alcohol) Sometimes have a glass of hard cider or beer. [facility] Utilities Answer Date Recorded In the past 12 months has [facility] [employer], gas, oil, or water [employer] threatened to shut off services in your [...] often do you attend chur ch or episcopal services? 1 to 4 times per year 11/10/2022 Do you belong to any clubs o r organizations such as baptism groups, unions, fraternal or athletic groups, or [...] Answer Date Recorded PHQ-2 Score 0 04/24/2024 [facility] [place] of Occupat ional Health - Occupational Stress [...] your living situation today? I have a [facility] place to live 04/18/2024 Education Answer Date Recorded What is the highest level of school you have completed or the highest degree you have received? 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 [address] [phone] PCP - General Family Medicine 10/28/22 documented as of this encounter
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
--- OUTSIDE RECORDS SUMMARY | 2024-07-14 12:20 | XMS_ITS | Clinical Summary ---
Author Organization [facility] Address [address] [place] [address] Care Team Providers Care Headline Writer Name Role Phone Adri Davis M.D. Primary Care Provider +1- [phone] Source Comments Patient records contain information from all sites at [facility]. For routine questions regarding patient records, call [phone] during business hours, M-F 8:00 AM - 5:00 PM Central Time. Record requests for emergency care only can be directed to [phone] at any time.[facility] Allergies Active Allergy Reactions Criticality Noted Date Comments [place] Other (see comments) 04/26/2021 Thyroid reaction [place] Starch Other (see comments) 06/26/2021 Doxycycline GI [...] 03/11/2006 Overview (03/26/2023): URI triggers. Hyperlipidemia 03/13/2005 Encounters Date Type Department Care Team Description 07/14/2024 Nurse Triage Department of Family Medicine, [facility], in [address] [phone] Yasmeen Viera R.N. Altered Mental Status 06/20/2024 Refill Department of Family Medicine, [facility], in [address] [phone] Adri Davis M.D. Med Refill 06/01/2024 Clinical Communication Department of Family Medicine, [facility], in [address] [phone] Adri Davis M.D. PandaDoc Form ([facility] - PT 04/26) 05/27/2024 Refill Department of Family Medicine, [facility], in [address] [phone] Adri Davis M.D. Med Refill 05/16/2024 Ancillary Procedure Department of Ophthalmology 05/09/2024 2:10 PM CDT Office Visit Division of Endocrinology in [address] [phone] María Elena Price M.D. Nodule Thyroid Nontoxic (Primary Dx) 05/09/2024 1:30 PM CDT Office Visit Department of Ophthalmology in [address] [phone] Mary Morgan M.D. Hypothyroidism Acquired (Primary Dx) 05/09/2024 10:00 AM CDT Comprehensive Visit Division of Endocrinology in [address] [phone] María Elena Price M.D. Graves' Disease 05/09/2024 9:00 AM CDT Comprehensive Visit Department of Ophthalmology in [place], [place] [address] [place] [phone] Mary Morgan M.D. Hypothyroidism Acquired 05/09/2024 6:49 AM CDT - 05/09/2024 11:59 PM CDT Hospital Encounter Department of Laboratory Medicine and Pathology, [facility] in [place], [place] [address] [place] [phone] Hardy Willett M.D. Graves' Disease Discharge Disposition: Home or Self Care 05/09/2024 Ancillary Procedure Department of Ophthalmology 05/08/2024 Documentation Department of Ophthalmology in [place], [place] [address] [place] [phone] Tony Verduzco M.D. 05/02/2024 Refill Department of Family Medicine, [facility], in [address] [phone] Adri Davis M.D. Med Refill 04/25/2024 9:21 AM CDT - 04/25/2024 11:59 PM CDT Hospital Encounter Department of Radiology in [address] [phone] Adri Davis M.D. Pain Wrist Left Discharge Disposition: Home or Self Care 04/25/2024 8:30 AM CDT Office Visit Department of Family Medicine, [facility], in [address] [phone] Adri Davis M.D. Health Maintenance Examination Adult (Primary Dx); Asymptomatic Menopausal State; Screening Osteoporosis; Pain Wrist Left; Hypermobility Syndrome; Anxiety Generalized Disorder; Depression Major One Episode Full Remission (HCC); Asthma Mild Intermittent (HCC) Discharge Disposition: Home or Self Care 04/24/2024 8:36 AM CDT - 04/24/2024 11:59 PM CDT Hospital Encounter Department of Radiology in [address] [phone] Adri Davis M.D. Screening Mammogram Average Risk Patient Discharge Disposition: Home or Self Care 04/24/2024 8:30 AM CDT - 04/24/2024 8:35 AM CDT Hospital Encounter Department of Laboratory Medicine in [address] [phone] Adri Davis M.D. Hyperlipidemia Discharge Disposition: Home or Self Care from Last 3 Months Immunizations Name Administration Dates Next Due H1N1 [...] quad (FLUZONE/FLUARIX) (6 months and older)(PF) 08/23/2023,06/16/2022,06/19/2021,2018,09/09/2017 Family History Medical History Relation Name Comments Depression Father Cuca Salazar Other cancer Father Cuca Salazar Myeloma Coronary artery disease Grandfather Diabetes Grandfather Hypertension Grandfather Hypothyroidism Grandmother Stroke Grandmother Arthritis Maternal Grandfather Liseth Nash Rheum arthritis Maternal Grandmother Liseth Saad Stroke Maternal Grandmother Liseth Nash Thyroid disease Maternal Grandmother Liseth Nash Arthritis Mother Lauren Nash Osteoarthriti s Colon polyps Mother Lauren Nash Dx at 79 Skin cancer Mother Lauren Nash Hypertension Paternal Grandfather Cuca Salazar Sr. Other cancer Paternal Grandmother Shaina Salazar Mye majo Relation Name Status Comments Father Cuca Salazar Grandfather Grandmother Maternal Grandfather Liseth Nash Maternal Grandmother Liseth Nash Mother Lauren Nsah Paternal Grandfather Cuca Salazar Sr. Paternal Grandmother Shaina Marie Social History Tobacco Use Types Packs/Day Years Used Date Smoking Tobacco: Never Smokeless Tobacco: Never Tobacco Cessation:Counseling Given: Not Answered Alcohol Use Standard Drinks/Week Comments Yes 2 (1 standard drink = 0.6 oz pure alcohol) Sometimes have a glass of hard cider or beer. [facility] Utilities Answer Date Recorded In the past 12 months has th e electric, gas, oil, or water company threatened to [...] often do you attend chur ch or gnosticism services? 1 to 4 times per year 11/10/2022 Do you belong to any clubs o r organizations such as anabaptism groups, unions, fraternal or athletic groups, or [...] Answer Date Recorded PHQ-2 Score 0 04/24/2024 [facility] - Occupational Stress Questionnaire Answer Date Recorded [...] your living situation today? I have a [facility] place to live 04/18/2024 Education Answer Date Recorded What is the highest level of school you have completed or the highest degree you have received? 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 Gender Identity Female 11/21/2022 8:10 AM CDT [...] 04/25/2024 8:26 AM CDT Plan of Treatment Health Maintenance Due Date Last Done Comments CT Colonography 1967 Colonoscopy 1967 FIT 1967 HIV Screening 1967 Hepatitis C Screening 1967 Hepatitis A Vaccines (2 of 2 - Risk 2-dose series) 08/10/2013 02/08/2013 Depression Monitoring (PHQ-9 for quality tracking) 09/06/2023 COVID-19 Vaccine ( season) 2024 02/24/2024, 06/27/2023, 02/11/2023, Additional history exists Hepatitis B Vaccines (2 of 2 - CpG (Heplisav) 2-dose series) 05/23/2024 04/25/2024 Influenza Vaccine (#1) 2024 , 06/16/2022, 06/19/2021, Additional history exists Depression Monitoring (PHQ-9) 08/24/2024 04/24/2024 Lipid (Cholesterol) Screening 04/24/2025 04/24/2024, 03/25/2023, 04/02/2021, Additional history exists Mammogram 04/24/2025 04/24/2024, 04/06, 04/01/2023, Additional history exists Thyroid Stimulating Hormone (TSH) test for thyroid function 05/09/2025 05/09/2024, 01/21/2024, 09/03/2023, Additional history exists Cologuard 05/19/2025 05/19/2022 (Perf ormed elsewhere) Colorectal Cancer Screening 05/19/2025 Fasting Glucose for Diabetes Screening 05/05/2026 05/05/2023, 03/25/2023, 10/27/2018, Additional history exists Cervical/Vaginal Cancer Screening 03/26/2028 03/26/2023, 03/26/2023, 06/22/2016, Additional history exists DTaP,Tdap,and Td Vaccines (3 - Td or Tdap) 10/27/2028 10/27/2018, 04/29/2009, 04/19/2003 Pneumococcal vaccine (0-64 years) (3 of 3 - PPSV23 or PCV20) 2032 06/22/2016, 09/08/1999, 09/08/1999 Zoster Vaccines Completed 02/26/2020, 11/09/2019 IPV Vaccines Aged Out No longer eligi ble based on patient's age to complete this topic Medical Devices Implanted Type Area Nitrocellulose Maker Device Identifier Shelf Expiration Date Model / [...] of2 resultswithin the time period is included. Zackary IIMS - 05/16/2024 12:44 PM CDT This order has been created and auto-finalized to support the import of images acquired without order. The clinical documentation to support these images can be found on the encounter that produced images. us Provider Not In System IMG NON RAD IMAGING PROCE PRISCILA Final Result IIMS NA * CBC with Differential, Blood (05/09/2024 [...] M.D. LAB BLOOD ADD-ON Final Resu lt [facility] [address] [place] [address], [facility] DTL [facility] [address] [place] [address] [facility] [place] [address] [place] [address] * Thyroid-Stimulating Immunoglobulin (TSI) (05/09/2024 7:00 AM CDT) Pathologist [facility] Thyroid-Stimula ting Immunoglob, S <1.0 <=1.3 TSI index 05/22/2024 1:16 PM CDT [facility] Blood (Blood, Venous) 05/09/2024 7:00 AM CDT 05/09/2024 10:55 AM CDT Result [facility] Hardy Willett M.D. LAB BLOOD ADD-ON Final Resu lt Performing Organization Address [facility] Co de Phone Number [facility] [address] [place] [address] [facility] [address] [place] [address] [place] [address] * Thyrotropin Receptor Antibody (05/09/2024 7:00 AM CDT) [facility] Thyrotropin Receptor Ab, S <1.10 0.00 - 1.75 IU/L 05/09/2024 5:05 PM CDT [facility] Comment: ----ADDITIONAL INFORMATION---- At a decision [...] ADD-ON Final Resu lt Performing Organization Address [facility]/ZIP Co de Phone Number [facility] [address] [place] [address] [facility] [address] [place] [address] * ALT (Alanine Aminotransferase) (05/09/2024 7:00 AM CDT) [facility] Alanine Aminotransferase (ALT), S 21 7 - 45 U/L 05/09/2024 8:27 AM CDT DTL Blood (Blood, Venous) 05/09/2024 7:00 AM CDT 05/09/2024 7:49 AM CDT Hardy Willett M.D. LAB BLOOD ADD-ON Final Resu lt Performing Organization Address City/[facility]/ZIP Co de Phone Number [facility] [address] [place] [address] * S-TSH (Thyroid-Stimulating Hormone - Sensitive) (05/09/2024 7:00 AM CDT) TSH, Sensitive 2.5 0.3 - 4.2 mIU/L 05/09/2024 8:27 AM CDT DTL Blood (Blood, Venous) 05/09/2024 7:00 AM CDT 05/09/2024 7:49 AM CDT Result Adrian Hardy Willett M.D. LAB BLOOD ADD-ON Final Resu lt Performing Organization Address [facility]/ZIP Co de Phone Number [facility] [address] [place] [address] * T4 (Thyroxine), Free (05/09/2024 7:00 AM CDT) T4 (Thyroxine), Free, S 1.1 0.9 - 1.7 ng/dL 05/09/2024 8:27 AM CDT DTL Blood (Blood, Venous) 05/09/2024 7:00 AM CDT 05/09/2024 7:49 AM CDT Hardy Willett M.D. LAB BLOOD ADD-ON Final Resu lt Performing Organization Address City/[facility]/ZIP Co de Phone Number [facility] [address] [place] [address] [place] [address] * Alkaline Phosphatase (05/09/2024 7:00 AM CDT) Alkaline Phosphatase, S 54 35 - 104 U/L 05/09/2024 8:27 AM CDT DTL Blood (Blood, Venous) 05/09/2024 7:00 AM CDT 05/09/2024 7:49 AM CDT us Hardy Willett M.D. LAB BLOOD ADD-ON Final Resu lt [address] [place] [address] * DX Wrist Left 3+ Views (04/25/2024 [...] M.D. LAB BLOOD ADD-ON Final Res ult [facility] [address] [place] [address] [facility] in [address] [address] * BI Breast Screening Bilateral with Tomosynthesis [...] Annual Screening Mammogram ASSESSMENT: BI-RADS: 1: Negative. Adri Davis M.D. IMPatrizia BI PROCEDURES Final Re sult * Basic [...] 9:42 AM CDT 05/05/2023 9:44 AM CDT Simón Pitt M.D., Ph.D. LAB BLOOD ADD-ON Final Result [facility] [address] [place] [address], [facility] CNFL [facility] [place] [address] * HPV with Genotyping, PCR, ThinPrep (03/26/2023 [...] correlated with patient's history, clinical presentation, and TAPE LIBRARIAN cytology report. 03/26/2023 12:3 1 PM CDT 03/29/2023 10:19 AM CDT us Adri Davis M.D. LAB MICROBIOLOGY - GENERAL ORDERABLES Final Result Performing Organization Address City/[facility]/ZIP Co de Phone Number [facility] [address] [place] [address], [facility] ECLR [address] [place] [address] [address] [place] [address] from Last 3 Months or Most Recently Relevant to Health Maintenance Insurance [employer] Advance Directives For more information, please contact: [phone] Documents on File Type Date Recorded Patient Binder Caser Expl anation Advance Directives 01/16/2013 12:00 AM Leg acy document. See document viewer. Care Teams Headline Writer Relationship Specialty Start Date End Date Adri Davis M.D. [address] [place] [phone] PCP - General Family Medicine 10/28/22
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
--- OUTSIDE RECORDS SUMMARY | 2024-07-14 12:21 | XMS_ITS | Encounter Summary ---
Author Organization [facility] Address [address] [place] [address] Care Team Providers Care Paper Baler Name Role Phone Adri Davis M.D. Primary Care Provider [phone] Encounter Details Date Type Department Care Team (Late st Contact Info) Description 05/08/2024 Documentation Department of Ophthalmology in [place], [place] [address] [place] [address] Tony Verduzco M.D. [address] [place] [address] Social History Tobacco Use Types Packs/Day Years Used Date Smoking Tobacco: Never Smokeless Tobacco: Never Alcohol Use Standard Drinks/Week Comments Yes 2 (1 standard drink = 0.6 oz pure alcohol) Sometimes have a glass of hard cider or beer. [facility] Utilities Answer Date Recorded In the past 12 months has [facility] [employer], gas, oil, or water [employer] threatened to shut off services in your [...] often do you attend chur ch or buddhist services? 1 to 4 times per year 11/10/2022 Do you belong to any clubs o r organizations such as jehovah's witness groups, unions, fraternal or athletic groups, or [...] Answer Date Recorded PHQ-2 Score 0 04/24/2024 [facility] - [...] your living situation today? I have a [facility] place to live 04/18/2024 Education Answer Date Recorded What is the highest level of school you have completed or the highest degree you have received? 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 - 05/08/2024 9:17 PM CDT The patient is presenting for a Thyroid Eye Disease consult. She presents today complaining of double vision from both the right and left eyes that does not resolve when she closes either eye. She does note that improves when she wears her glasses. 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 She reports that she has variability in her symptoms that seems to be provoked by consuming any type of corn based product. We are seeing her on a good day. She gets routine eye care elsewhere. Thyroid history: Diagnosed: [place]ison, hypothyroidism November 2022 Medication: levothyroxine 75 mcg MORLEY: none Thyroidectomy: none Currently Euthyroid Eye symptoms (getting better/worse/the same): Swelling: the same Proptosis/bulging eyes: getting worse Diplopia: monocular, started 2 years ago; worse now Gritty/dry feeling: none Tearing: none Redness: the same Pain: worse Blurred vision: same Light sensitivity: worse (*pain & redness with bulging episodes, patient finds it is associated with consuming corn and associated products) Prior Ocular history, surgical rehabilitation or other eye surgery: Orbital decompression: none Strabismus surgery: none Eyelid surgery: none Labs: TSI (date): pending TrAB (date): pending Imaging: pending Exam: The patient has the following signs of thyroid eye disease: Lid retraction NO Lag on downgaze YES - slight Proptosis NO Restrictive Strabismus NO Vision Threatening complications: NO - Severe exposure keratopathy NO - Compressive optic neuropathy NO Proptosis was measured with Evelyn device: 15 mm right / 15.5 mm left over base of 98. Subjective Binocular diplopia Chamberlain score is: 0 (0=none; 1=when tired/upon awakening; 2=intermittent; 3=constant) Overall DEVIKA: 0 Clinical Activity Score (Enter ???0?? for no and ???1?? for yes regarding subject's current condition) Right Eye Left Eye Spontaneous orbital pain 0 0 Gaze Evoked orbital pain 0 0 Eyelid swelling that is considered to be due to active (inflammatory phase) HARSHIL 0 0 Eyelid erythema 0 0 Conjunctiva redness that is considered to be due to active (inflammatory phase) HARSHIL (ignore 'equivocal' redness) 0 0 Chemosis 0 0 Inflammation of caruncle or plica 0 0 Total Score (sum) Assessment and plan: #1 Monocular diplopia #2 Primary hypothyroidism Based on today's examination, there is no definitive evidence of thyroid eye disease. She has primary hypothyroidism. It appears that her diplopia is mostly due to refractive air as well as a dry eyecomponent. We discussed supportive care with increased frequency of artificial tears and adding GenTeal gel atbedtime. Will also discussed that she could try selenium 200 mcg per day. I do not see a role for more aggressive measures such as intravenous steroids or other immunomodulatory medications such as teprotumumab given the lack of definitive diagnosis.. She does note that her symptoms wax and wane. There are days when she has a lot more swelling, which is not apparent today. She may send us photos via the portal when she has a flare. Will otherwise leave follow-up open-ended. TT 50 CT 45 documented in this encounter Plan of Treatment Not on file documented as of this encounter Visit Diagnoses Not on filedocumented in this encounter Additional Health Concerns Assessment Noted Time PHQ-9 Depression Total Score: 1 04/24/20 24 10:44 AM CDT documented as of this encounter Care Teams Paper Baler Relationship Specialty Start Date End Date Adri Davis M.D. [address] [place] [phone] PCP - General Family Medicine 10/28/22 documented as of this encounter
--- OUTSIDE RECORDS SUMMARY | 2024-07-14 12:21 | XMS_ITS | Encounter Summary ---
Author Organization [facility] Address [address] [place] [address] Care Team Providers Care Occupational Analyst Name Role Phone Adri Davis M.D. Primary Care Provider [phone]- [phone] Reason for Referral * Outpatient (Routine) - Closed Specialty Diagnoses / Procedures Referred By Kenya nam Referred To Contact Diagnoses Pain Wrist Left Procedures DX Wrist Left 3+ Views Adri Davis M.D. [address] [phone] Phone: tel: fax: [facility] Region Referral ID Status Reason Start Date Expiration Date Visits Re quested Visits Authorized [id number] Closed 04/25/2024 04/25/2025 1 1 Reason for Visit * Outpatient (Routine) - Closed Specialty Diagnoses / Procedures Referred By Kenya nam Referred To Contact Diagnoses Pain Wrist Left Procedures DX Wrist Left 3+ Views Adri Davis M.D. [address] [phone] Phone: tel: fax: [facility] Region Referral ID Status Reason Start Date Expiration Date Visits Re quested Visits Authorized [id number] Closed 04/25/2024 04/25/2025 1 1 Encounter Details Date Type Department Care Team (Latest Contact Info) Description 04/25/2024 9:21 AM CDT - 04/25/2024 11:59 PM CDT Hospital Encounter Department of Radiology in [address] [phone] Adri Davis M.D. [address] [place] [phone] Pain Wrist Left Discharge Disposition: Home or Self Care Social History Tobacco Use Types Packs/Day Years Used Date Smoking Tobacco: Never Smokeless Tobacco: Never Alcohol Use Standard Drinks/Week Comments Yes 2 (1 standard drink = 0.6 oz pure alcohol) Sometimes have a glass of hard cider or beer. [facility] [employer] Answer Date Recorded In the past 12 months has e [employer], gas, oil, or water [employer] threatened to shut off services in your [...] often do you attend chur ch or uatsdin services? 1 to 4 times per year 11/10/2022 Do you belong to any clubs o r organizations such as moravian groups, unions, fraternal or athletic groups, or [...] Answer Date Recorded PHQ-2 Score 0 04/24/2024 [facility] - Occupational Stress Questionnaire Answer Date [...] your living situation today? I have a [facility] place to live 04/18/2024 Education Answer Date Recorded What is the highest level of school you have completed or the highest degree you have received? 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 11/22/2018 ipratropium-albu teroL (Combivent Respimat) 20-100 mcg/actuation inhaler Inhale 1 puff as needed for wheezing. 4 g 3 04/25/2024 levothyroxine sodium (TIROSINT) 75 mcg capsule Take 1 capsule (75 mcg total) by mouth every morning before breakfast. 90 capsule 3 06/30/2023 loratadine (CLARITIN) 10 mg tablet Take 10 mg by mouth as needed. 04/30/2022 magnesium citrate solution Take by mouth once. multivitamin capsule Take by mouth daily. 06/18/2014 olopatadine (PATANOL) 0.1 % ophthalmic solution Administer 1 drop into both eyes as needed. 06/22/2016 escitalopram (Lexapro) 5 mg tablet Take 1 tablet (5 mg total) by mouth daily. 90 tablet 3 04/25/2024 4 documented as of this encounter Plan of Treatment Not on file documented as of this encounter Procedures Procedure Name Priority Date/Time Associated Diagnosis Comments DX WRIST LEFT 3+ VIEWS RAD - Routine (most inpatients and all outpatients) 04/25/2024 9:30 AM CDT Pain Wrist Left documented in this encounter Results * DX Wrist Left 3+ Views (04/25/2024 [...] fracture or malalignment. Mild scatteredpolyarticular degenerative changes. Adri Davis M.D. IMG DIAGNOSTIC IMAGING PRO CEDURES Final Result documented in this encounter Visit Diagnoses Diagnosis Pain Wrist Left documented in this encounter Additional Health Concerns Assessment Noted Time PHQ-9 Depression Total Score: 1 04/24/20 24 10:44 AM CDT documented as of this encounter Care Teams Occupational Analyst Relationship Specialty Start Date End Date Adri Davis M.D. [address] [place] [phone] PCP - General Family Medicine 10/28/22 documented as of this encounter
--- OUTSIDE RECORDS SUMMARY | 2024-07-14 12:21 | XMS_ITS | Encounter Summary ---
Author Organization [facility] Address [address] [place] [address] Care Team Providers Care Book Binder Name Role Phone Adri Davis M.D. Primary Care Provider +1- [phone] Reason for Visit * Outpatient (Routine) - Closed Specialty Diagnoses / Procedures Referred By Kenya nam Referred To Contact Endocrinology Diagnoses Graves' Disease Hardy Willett M.D. [address] [place] [address] Phone: tel: fax: [facility] Referral ID Status Reason Start Date Expiration Date Visits Re quested Visits Authorized [id number] Closed 01/03/2024 07/04/2025 1 1 Encounter Details Date Type Department Care Team (Latest Contact Info) Description 05/09/2024 10:00 AM CDT Comprehensive Visit Division of Endocrinology in [place], [place] [address] [place] [phone] María Elena Price M.D. [address] [place] [phone] Graves' Disease Social History Tobacco Use Types Packs/Day Years Used Date Smoking Tobacco: Never Smokeless Tobacco: Never Alcohol Use Standard Drinks/Week Comments Yes 2 (1 standard drink = 0.6 oz pure alcohol) Sometimes have a glass of hard cider or beer. [facility] Utilities Answer Date Recorded In the past 12 months has [employer], gas, oil, or water [employer] threatened to shut off services in your [...] How often do you attend chur or baptist services? 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 - 05/09/2024 10:00 AM CDT SUBJECTIVE REASON FOR CONSULT I visited with Esperanza for a consultation regarding thyroid disease and thyroid eye disease. HISTORY OF PRESENT ILLNESS Esperanza was diagnosed with Addison's thyroiditis and primary hypothyroidism in November of last year. She was found to have a number of thyroid nodules that were evaluated by my colleagues here and deemed to be of no major concern. She was also found to be having primary hypothyroidism and was initiated on levothyroxine therapy which she continues through today. She is on 75 mcg of levothyroxine, and with that her thyroid levels are currently normal. As far as the eye disease is concerned, she reports that she has been troubled by diplopia for about 2 years. It is interesting that she describes it as at times more episodic with flares that are associated with changes in appearance with apparently increased proptosis as well as episodes of headaches that are associated with these flares. She concluded that corn-containing products are the trigger for these episodes, and she is currently trying to avoid such products. As I am seeing her, she describes that one such flare has just started about half an hour ago. It is not a significant discomfort at this point yet. REVIEW OF SYSTEMS Pertinent for the fact that she is not exposed to smoke. MEDICAL HISTORY Pertinent for asthma (mild) and anxiety (mild). FAMILY HISTORY Positive for thyroid pathology on maternal side (an aunt) with apparently benign thyroid disease but no thyroid eye disease. OBJECTIVE PHYSICAL EXAMINATION General: She is a pleasant lady. She is in no physical distress except for the fact that light bothers her and she wears sunglasses. Skin: Warm without diaphoresis, acropachy, or dermopathy. Neck: Reveals a thyroid that is slightly enlarged at about 15 g. Nontender and with mild bosselation. No distinct nodule is apparent. There is no tenderness. There is no cervical adenopathy and no scars. Spine: Without kyphosis. Heart: Her heart rate is in the mid-70s and regular. Extremities: Without edema or dermopathy. Cognitive Status: Intact. Eyes: Appear quiet with no evidence for inflammatory changes of any kind. There is no evidence for lid retraction. Extraocular movements appeared okay. She had exophthalmometry measurements of 14 bilaterally with a base of 95. DIAGNOSTICS I reviewed the ultrasound from October of last year, and I see that she had changes consistent with thyroiditis and a couple of small nodules between 5 and 12 mm were identified. They were not appearing suspicious at the time. ASSESSMENT / PLAN #1 Hypothyroidism secondary to Addison's thyroiditis She is euthyroid as of today, and I recommend she continue same dose of levothyroxine. #2 Thyroid nodularity Certainly, it would be reasonable to obtain a repeat ultrasound, but if no significant change in these nodules then one can continue monitoring just clinically. #3 Concerns about thyroid eye disease At this point, I do not see any clinical indication for thyroid eye disease fortunately. It is goodto see that there are no inflammatory features, no proptosis, and no lid changes. Certainly, I am looking to my colleagues in Ophthalmology to understand what her double vision relates to, and then we will communicate with her later today. Hopefully, by then we will have the TSH receptor antibodies, and we will decide if there is any need for pursuing the CT of the orbits later today. I have reassured her that the overall appearance of her eyes does not indicate anything concerning/severe regarding thyroid eye disease possibility. A mild form will be discussed later if antibodies are positiveand/or CT findings are concerning. Questions answered. BILLING LEVEL: P3. María Elena Price M.D. CT CT Job ID: [id number] documented in this encounter Plan of Treatment Not on file documented as of this encounter Visit Diagnoses Diagnosis Graves' Disease documented in this encounter Additional Health Concerns Assessment Noted Time PHQ-9 Depression Total Score: 1 04/24/20 24 10:44 AM CDT documented as of this encounter Care Teams Book Binder Relationship Specialty Start Date End Date Adri Davis M.D. [address] [place] [phone] PCP - General Family Medicine 10/28/22 documented as of this encounter
--- OUTSIDE RECORDS SUMMARY | 2024-07-14 12:21 | XMS_ITS | Encounter Summary ---
Author Organization [facility] Address [address] [place] [address] Care Team Providers Care Hand Cementer Name Role Phone Adri Davis M.D. Primary Care Provider +1- [phone] Reason for Visit * Outpatient (Routine) - Closed Specialty Diagnoses / Procedures Referred By Kenya nam Referred To Contact Ophthalmology Hardy Willett M.D. [address] [place] [phone] Phone: tel: fax: [facility] Referral ID Status Reason Start Date Expiration Date Visits Re quested Visits Authorized [id number] Closed 01/03/2024 07/04/2025 1 1 Encounter Details Date Type Department Care Team ([facility] st Contact Info) Description 05/09/2024 1:30 PM CDT Office Visit Department of Ophthalmology in [place], [place] [address] [place] [phone] Mary Morgan M.D. [address] [place] [phone] Hypothyroidism Acquired (Primary Dx) Social History Tobacco Use Types Packs/Day Years Used Date Smoking Tobacco: Never Smokeless Tobacco: Never Alcohol Use Standard Drinks/Week Comments Yes 2 (1 standard drink = 0.6 oz pure alcohol) Sometimes have a glass of hard cider or beer. 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 - 05/09/2024 1:30 PM CDT Esperanza Shankar was seen at [place] [id number] Price. Please see my note from earlier today. documented in this encounter Plan of Treatment Not on file documented as of this encounter Visit Diagnoses Diagnosis Hypothyroidism Acquired- Primary documented in this encounter Additional Health Concerns Assessment Noted Time PHQ-9 Depression Total Score: 1 04/24/20 24 10:44 AM CDT documented as of this encounter Care Teams Hand Cementer Relationship Specialty Start Date End Date dAri Davis M.D. [address] [place] [phone] PCP - General Family Medicine 10/28/22 documented as of this encounter
--- OUTSIDE RECORDS SUMMARY | 2024-07-14 12:21 | XMS_ITS | Encounter Summary ---
Author Organization [facility] Address [address] [place] [address] Care Team Providers Care Activity Coordinator Name Role Phone Adri Davis M.D. Primary Care Provider +1- [phone] Reason for Visit * Reason Comments Thyroid Eye Disease * Outpatient (Routine) - Closed Specialty Diagnoses / Procedures Referred By Kenya nam Referred To Contact Ophthalmology Diagnoses Hypothyroidism Acquired Adri Davis M.D. [phone] [place] [phone] Phone: tel: fax: [facility] Referral ID Status Reason Start Date Expiration Date Visits Re quested Visits Authorized [id number] Closed 12/12/2023 06/12/2025 1 1 Encounter Details Date Type Department Care Team (Latest Contact Info) Description 05/09/2024 9:00 AM CDT Comprehensive Visit Department of Ophthalmology in [place], [place] [address] [place] [phone] Mary Morgan M.D. [address] [place] [phone] Hypothyroidism Acquired Social History Tobacco Use Types Packs/Day Years Used Date Smoking Tobacco: Never Smokeless Tobacco: Never Alcohol Use Standard Drinks/Week Comments Yes 2 (1 standard drink = 0.6 oz pure alcohol) Sometimes have a glass of hard cider or beer. [facility] Utilities Answer Date Recorded In the past 12 months has th e [employer], gas, oil, or water company threatened to [...] often do you attend chur ch or presybeterian services? 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 - 05/09/2024 9:00 AM CDT Esperanza Shankar was seen today for [facility] The patient is presenting for a Thyroid Eye Disease consult. She presents today complaining of double vision from both the right and left eyes that does not resolve when she closes either eye. She does note that improves when she wears her glasses. 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 She reports that she has variability in [...] of this encounter Visit Diagnoses Diagnosis Hypothyroidism Acquired documented in this encounter Additional Health Concerns Assessment Noted Time PHQ-9 Depression Total Score: 1 04/24/20 24 10:44 AM CDT documented as of this encounter Care Teams Activity Coordinator Relationship Specialty Start Date End Date Adri Davis M.D. [address] [place] [phone] PCP - General Family Medicine 10/28/22 documented as of this encounter
--- OUTSIDE RECORDS SUMMARY | 2024-07-14 12:21 | XMS_ITS | Encounter Summary ---
Author Organization [facility] Address [address] [place] [address] Care Team Providers Care Water Resources Technical Officer Name Role Phone Adri Davis M.D. Primary Care Provider +1- [phone] Reason for Referral * Outpatient (Routine) - Authorized Specialty Diagnoses / Procedures Referred By Contac t Referred To Contact Diagnoses Asymptomatic Menopausal State Screening Osteoporosis Procedures BMD Bone Density Spine Hips Adir Davis M.D. [address] [place] [phone] Phone: tel: fax: [facility] Referral ID Status Reason Start Date Expiration Date V isits Requested Visits Authorized [id number] Authorized 04/25/2024 04/25/2025 1 1 * Outpatient (Routine) - Closed Specialty Diagnoses / Procedures Referred By Contac t Referred To Contact Diagnoses Pain Wrist Left Procedures DX Wrist Left 3+ Views Adri Davis M.D. [address] [place] [phone] Phone: tel: fax: [facility] Region Referral ID Status Reason Start Date Expiration Date Visits Re quested Visits Authorized [id number] Closed 04/25/2024 04/25/2025 1 1 * Outpatient (Routine) - Authorized Specialty Diagnoses / Procedures Referred By Kenya nam Referred To Contact Adri Davis M.D. [address] [place] [phone] Phone: tel: fax: [facility] Region Referral ID Status Reason Start Date Expiration Date V isits Requested Visits Authorized [id number] Authorized 04/25/2024 10/25/2025 1 1 * Outpatient (Routine) - Authorized Specialty Diagnoses / Procedures Referred By Kenya nam Referred To Contact Occupational Therapy Diagnoses Pain Wrist Left Adri Davis M.D. [address] [place] [phone] Phone: tel: fax: Referral ID Status Reason Start Date Expiration Date Visits Requested Visits Authorized [id number] Authorized Patient Preference 04/25/2024 10/25/2025 1 1 * Physical Therapy (Routine) - Authorized Specialty Diagnoses / Procedures Referred By Kenya nam Referred To Contact Physical Therapy Diagnoses Hypermobility Syndrome Adri Davis M.D. [address] [place] [phone] Phone: tel: fax: Referral ID Status Reason Start Date Expiration Date Visits Requested Visits Authorized [id number] Authorized Patient Preference 04/25/2024 10/25/2025 1 1 Reason for Visit * Reason Comments Annual Exam Left wrist concerns, was out with her dogs about 6 weeks ago and had the leash around her left wrist and they went after a squirrel and her radius bone is still sore and the hypermobility is still not right. * Appointment Request (Routine) - Closed Specialty Diagnoses / Procedures Referred By Kenya nam Referred To Contact Family Medicine Referral ID Status Reason Start Date Expiration Date Visits Re quested Visits Authorized [id number] Closed 01/13/2024 01/12/2025 1 1 Encounter Details Date Type Department Care Team (Late st Contact Info) Description 04/25/2024 8:30 AM CDT Office Visit Department of Family Medicine, [facility], in [address] [phone] Adri Davis M.D. [address] [place] [phone] Health Maintenance Examination Adult (Primary Dx); Asymptomatic Menopausal State; Screening Osteoporosis; Pain Wrist Left; Hypermobility Syndrome; Anxiety Generalized Disorder; Depression Major One Episode Full Remission (HCC); Asthma Mild Intermittent (HCC) Discharge Disposition: Home or Self Care Social History Tobacco Use Types Packs/Day Years Used Date Smoking Tobacco: Never Smokeless Tobacco: Never Tobacco Cessation:Counseling Given: Not Answered Alcohol Use Standard Drinks/Week Comments Yes 2 (1 standard drink = 0.6 oz pure alcohol) Sometimes have a glass of hard cider or beer. [facility] [employer] Answer Date Recorded In the past 12 months has e [employer], gas, oil, or water [employer] threatened to shut off services in your [...] often do you attend chur ch or confucianism services? 1 to 4 times per year 11/10/2022 Do you belong to any clubs o r organizations such as cheondoism groups, unions, fraternal or athletic groups, or [...] Answer Date Recorded PHQ-2 Score 0 04/24/2024 [facility] - [...] your living situation today? I have a [facility] place to live 04/18/2024 Education Answer Date Recorded What is the highest level of school you have completed or the highest degree you have received? 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 Gender Identity Female 11/21/2022 8:10 AM CDT Sexual Orientation Straight 11/21/2022 8: 10 AM CDT documented as of this encounter Last Filed Vital Signs Vital Sign Reading Time Taken Comments Blood Pressure 116/77 04/25/2024 8:26 AM CDT Pulse 80 04/25/2024 8:26 AM CDT Temperature 37.1 ??C (98.8 ??F) 04/25/2024 8:26 AM CD T Respiratory Rate - - Oxygen Saturation 98% 04/25/2024 8:26 AM CDT Inhaled Oxygen Concentration - - Weight 95 kg (209 lb 7 oz) 04/25/2024 8:26 AM CD T Height 170.3 cm (5' 7.05) 04/25/2024 8:26 AM CD T Body Mass Index 32.76 04/25/2024 8:26 AM CDT documented in this encounter Patient Instructions * Patient Instructions* Adri Davis M.D. - 04/25/2024 8:30 AM CDT For bone health, I recommend a total of 1200 mg of calcium daily, and you can add [id number] supplementation if you are not getting enough through diet alone. I also recommend a vitamin D supplement of 800 to 1,000 IU daily. documented in this encounter H&P Notes * Adri Davis M.D. - 04/25/2024 8:30 AM CDT SUBJECTIVE REASON FOR VISIT Annual Exam (Left wrist concerns, was out with her dogs about 6 weeks ago and had the leash around her left wrist and they went after a squirrel and her radius bone is still sore and the hypermobility is still not right. ) HISTORY OF PRESENT ILLNESS: Esperanza Shankar is a 58 y.o. female presenting to clinic for annual physical. 6 weeks ago, she had her dog's leash wrapped around her left wrist. In the her dog pulled on the leash, causing pain in the wrist. Tenderness over her distal radius since that time. Certain movementscreate pain into the thumb. This happens about once per day. Difficulty with radial deviation and thumb abduction. Wearing a soft splint at night, which is helpful. She requests a new PT referral for her hypermobility syndrome. ALLERGIES Allergies Allergen Reactions Ewing Other (see comments) Thyroid reaction Ewing Starch Other (see comments) Doxycycline GI intolerance Milk Other (see comments) Cow milk Nickel Itching Penicillins Shortness of breath (Reselect Reaction), Hives (Reselect Reaction), Itching and Rash PN: LW Reaction: Rash, Generalized PN: LW Reaction: Rash, Generalized Prednisone Headache Tapioca Other (see comments) and Shortness of breath (Reselect Reaction) Cassava/thyroid reaction MEDICATIONS Current Outpatient Medications Medication Sig acetaminophen (TYLENOL) 500 mg tablet Take 1,000 mg by mouth as needed. ipratropium-albuteroL (Combivent Respimat) 20-100 mcg/actuation inhaler Inhale 1 puff as needed forwheezing. levothyroxine sodium (TIROSINT) 75 mcg capsule Take 1 capsule (75 mcg total) by mouth every morningbefore breakfast. loratadine (CLARITIN) 10 mg tablet Take 10 mg by mouth as needed. magnesium citrate solution Take by mouth once. multivitamin capsule Take by mouth daily. olopatadine (PATANOL) 0.1 % ophthalmic solution Administer 1 drop into both eyes as needed. escitalopram (Lexapro) 5 mg tablet Take 1 tablet (5 mg total) by mouth daily. MEDICAL HISTORY Past Medical History: Diagnosis Date Anemia 1984 Concussion Loss Of Consciousness Unspecified Duration Initial Gastroesophageal Reflux Disease NOS Headache Unspecified Pneumonia 1984 Patient Active Problem List Diagnosis Depression Major One Episode Full Remission (HCC) Nodule Thyroid Nontoxic Hyperlipidemia Asthma Mild Intermittent (HCC) Anxiety Generalized Disorder Hypothyroidism Acquired Hypermobility Syndrome SURGICAL HISTORY Past Surgical History: Procedure Laterality Date APPENDECTOMY 1984 ARTHROPLASTY HIP Bilateral 2018 BI ULTRASOUND GUIDED BREAST BIOPSY 02/16/2018 benign HYSTEROSCOPY W/ POLYPECTOMY 2020 SOCIAL HISTORY Social History Social History Narrative Lives in [place], [place]. Partner, Obed. 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 Never smoker. FAMILY HISTORY Family History Problem Relation Name Age of Onset Coronary artery disease Grandfather Hypertension Grandfather Diabetes Grandfather Stroke Grandmother Hypothyroidism Grandmother Depression Father Cuca Salazar Other cancer Father Cuca Salazar Myeloma Skin cancer Mother Lauren Nash Arthritis Mother Lauren Nash Osteoarthritis Colon polyps Mother Lauren Nash Dx at 79 Arthritis Maternal Grandfather Liseth Nash Stroke Maternal Grandmother Liseth Nash Thyroid disease Maternal Grandmother Liseth Nash Rheum arthritis Maternal Grandmother Liseth Nash Hypertension Paternal Grandfather Cuca Marie Sr. Other cancer Paternal Grandmother Shaina Salazar Myeloma VITAL SIGNS BP 116/77 (BP Location: Left arm, Patient Position: Sitting) Pulse 80 Temp 37.1 ??C (Temporal) Ht 170.3 cm Wt 95 kg SpO2 98% No BMI 32.76 kg/m?? PHYSICAL EXAMINATION Vitals reviewed. Constitutional General: She is not in acute distress. HENT Right Ear: Tympanic membrane normal. Left Ear: Tympanic membrane normal. Mouth/Throat: Mouth: Mucous membranes are moist. Pharynx: No posterior oropharyngeal erythema. Eyes Conjunctiva/sclera: Conjunctivae normal. Neck Thyroid: No thyromegaly. Cardiovascular Rate and Rhythm: Normal rate and regular rhythm. Pulmonary Effort: Pulmonary effort is normal. Breath sounds: Normal breath sounds. No wheezing, rhonchi or rales. Abdominal General: Bowel sounds are normal. There is no distension. Palpations: Abdomen is soft. Tenderness: There is no abdominal tenderness. Musculoskeletal Right lower leg: No edema. Left lower leg: No edema. Comments: Hand/wrist exam: Inspection: No thenar atrophy. No joint swelling or redness. No contractures. Palpation: No tenderness with palpation of the MCP joints, DIP joints, PIP joints, anatomic snuffbox, metacarpals. Tenderness to palpation over the lateral distal radius. ROM: Range of motion is limited with radial deviation. Mildly limited with wrist extension. Otherwise normal. Special tests: Negative Sheila. Lymphadenopathy Cervical: No cervical adenopathy. Skin General: Skin is warm and dry. Neurological Mental Status: She is alert. Mental status is at baseline. Psychiatric Mood and Affect: Mood normal. Behavior: Behavior normal. ASSESSMENT / PLAN Esperanza hSankar is a 58 y.o. female presenting to clinic for annual physical. #1 Health Maintenance Examination Adult #2 Asymptomatic Menopausal State #3 Screening Osteoporosis Reviewed routine health maintenance with patient. Screening is recommended according to guidelines for the patient's age as below. Encourage healthy diet and regular exercise. Follow up in 1 year forthe next health maintenance exam. - Vaccinations: Immunizations Given This Visit Procedures HepB 2-dose: hepatitis B adult (Heplisav-B) vaccine (age 18 years and older) - Diabetes screening: Up-to-date. - Cholesterol screening: Up-to-date. - Colon cancer screening: Up-to-date. - Breast cancer screening: Mammogram up-to-date. - Cervical cancer screening: No recent history of abnormal pap smears. Screening is up-to-date. - Bone Density Screening: DEXA scan ordered today given age >65 and/or postmenopausal status with risk factors. #4 Pain Wrist Left Patient sustained an injury to the left wrist approximately 6 weeks ago, with ongoing pain over thedistal radius. Will obtain x-rays today to rule out fracture. Pending results, will start with occupational therapy. If no improvement, recommend evaluation by Orthopedics. #5 Hypermobility Syndrome She finds benefit from regular physical therapy sessions. New referral order is provided. #6 Anxiety Generalized Disorder #7 Depression Major One Episode Full Remission (HCC) Her anxiety is suboptimally controlled. Unfortunately, she experienced weight gain with sertraline doses higher than 12.5 mg. Will trial a switch over to Lexapro. She will update me with a portal message in approximately 2 months. #8 Asthma Mild Intermittent (HCC) Symptoms are well controlled. Combivent refilled. Adri Davis M.D. documented in this encounter Plan of Treatment Scheduled Orders Name Type Priority Associated Diagnoses Orde r Schedule BMD Bone Density Spine Hips Imaging RAD - Routine (most inpatients and all outpatients) Asymptomatic Menopausal State Screening Osteoporosis Expected: 04/25/2024, Expires: 07/26/2025 Scheduled Referrals Name Type Priority Associated Diagnoses Order Schedule Primary Care nurse visit (clinic) - [facility] Region; Immunization; Immunization due Outpatient Referral Routine Expected: 04/25/2024 (Approximate), Expires: 07/26/2025 documented as of this encounter Results * DX Wrist Left [...] documented in this encounter Visit Diagnoses Diagnosis Health Maintenance Examination Adult- Primary Asymptomatic Menopausal State Screening Osteoporosis Pain Wrist Left Hypermobility Syndrome Anxiety Generalized Disorder Depression Major One Episode Full Remission (HCC) Asthma Mild Intermittent (HCC) Pain Wrist Left documented in this encounter Additional Health Concerns Assessment Noted Time PHQ-9 Depression Total Score: 1 04/24/20 24 10:44 AM CDT documented as of this encounter Care Teams Water Resources Technical Officer Relationship Specialty Start Date End Date Adri Davis M.D. [address] [place] [phone] PCP - General Family Medicine 10/28/22 documented as of this encounter
--- OUTSIDE RECORDS SUMMARY | 2024-07-14 12:21 | XMS_ITS | Encounter Summary ---
Author Organization [facility] Address [address] [place] [address] Care Team Providers Care Straightening Machine Operator Name Role Phone Adri Davis M.D. Primary Care Provider +1- [phone] Encounter Details Date Type Department Care Team (Latest Contact Info) Description 03/17/2024 Clinical Communication Division of Endocrinology in [place], [place] [address] [place] [phone] María Elena Price M.D. [address] [place] [phone] Social History Tobacco Use Types Packs/Day Years Used Date Smoking Tobacco: Never Smokeless Tobacco: Never Alcohol Use Standard Drinks/Week Comments Yes 2 (1 standard drink = 0.6 oz pure alcohol) Sometimes have a glass of hard cider or beer. [facility] Utilities Answer Date Recorded In the past 12 months has [employer], oil, or water [employer] threatened to shut off services in your [...] often do you attend chur ch or episcopalian services? 1 to 4 times per year 11/10/2022 Do you belong to any clubs o r organizations such as bahai groups, unions, fraternal or athletic groups, or [...] PHQ-2 Answer Date Recorded PHQ-2 Score 0 03/25/2023 [facility] - Occupational Stress [...] ded PHQ-9 Total Score (max 27) 1 03/25 Nutrition Answer Date Recorded On average, how [...] living situation today? I have a [facility] place to live 04/18/2024 Education Answer Date Recorded What is the highest level of school you have completed or the highest degree you have received? 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 [address] [place] [phone] PCP - General Family Medicine 10/28/22 documented as of this encounter
--- OUTSIDE RECORDS SUMMARY | 2024-07-14 12:21 | XMS_ITS | Encounter Summary ---
Author Organization [facility] Address [address] [place] [address] Care Team Providers Care Remelter Name Role Phone Adri Davis M.D. Primary Care Provider +1- [phone] Encounter Details Date Type Department Care Team (Latest Contact Info) Description 04/24/2024 8:30 AM CDT - 04/24/2024 8:35 AM CDT Hospital Encounter Department of Laboratory Medicine in [address] [phone] Adri Davis M.D. [address] [place] [phone] Hyperlipidemia Discharge Disposition: Home or Self Care Social History Tobacco Use Types Packs/Day Years Used Date Smoking Tobacco: Never Smokeless Tobacco: Never Alcohol Use Standard Drinks/Week Comments Yes 2 (1 standard drink = 0.6 oz pure alcohol) Sometimes have a glass of hard cider or beer. [facility] Utilities Answer Date Recorded In the past 12 months has [employer], gas, oil, or water [employer] threatened to shut off services in your [...] often do you attend chur ch or mosque services? 1 to 4 times per year [...] Answer Date Recorded PHQ-2 Score 0 04/24/2024 [facility] Occupat ional Health - Occupational Stress [...] your living situation today? I have a [facility] place to live 04/18/2024 Education Answer Date Recorded What is the highest level of school you have completed or the highest degree you have received? Doctorate 10/29/2022 Comments No Sex and Gender Information Value Date Recorded Sex Assigned at Female 11/21/2022 8:10 AM CDT Legal Sex Female 9:11 PM PIPELINE DISPATCH OPERATOR Gender Identity Female 11/21/2022 8:10 AM CDT Sexual Orientation Straight 11/21/2022 8: 10 AM CDT documented as of this encounter Medications at Time of Discharge acetaminophen (TYLENOL) 500 mg tablet Take 1,000 mg by mouth as needed. 11/22/2018 levothyroxine sodium (TIROSINT) 75 mcg capsule Take 1 capsule (75 mcg total) by mouth every morning before breakfast. 90 capsule 3 06/30/2023 loratadine (CLARITIN) 10 mg tablet Take 10 mg by mouth as needed. 04/30/2022 multivitamin capsule Take by mouth daily. 06/18/2014 olopatadine (PATANOL) 0.1 % ophthalmic solution Administer 1 drop into both eyes as needed. 06/22/2016 ipratropium-albu teroL (COMBIVENT RESPIMAT) 20-100 mcg/actuation inhaler Inhale 1 puff as needed for wheezing. 4 sertraline (ZOLOFT) 25 mg tablet Take 0.5 tablets (12.5 mg total) by mouth daily. 45 tablet 3 03/26/2023 4 documented as of this encounter Plan of Treatment Not on file documented as of this encounter Procedures Procedure Name Priority Date/Time Associated Diagnosis Comments LIPID PANEL, S Routine 04/24/2024 8:58 AM CDT Hyperlipidemia documented in this encounter Results * (ABNORMAL) Lipid Panel (04/24/2024 8:58 AM CDT) [facility] Triglycerides 120 mg/dL 04/24/2024 9:21 AM CDT [facility] Comment: ----REFERENCE VALUE---- Normal: <150 mg/dL Borderline High: 150-199 mg/dL High: 200-499 mg/dL Very High: > or =500 mg/dL Cholesterol, Total 226(H) mg/dL 2023 9:21 AM CDT [facility] Comment: ----REFERENCE VALUE---- Desirable: < 200 mg/dL Borderline High: 200 - 239 mg/dL High: > or = 240 mg/dL Cholesterol, LDL, Calculated 140(H) mg/dL 04/24/2024 9:21 AM CDT [facility] Comment: ----REFERENCE VALUE---- Desirable: <100 mg/dL Above Desirable: 100-129 mg/dL Borderline High: 130-159 mg/dL High: 160-189 mg/dL Very High: >=190 mg/dL ----ADDITIONAL INFORMATION---- LDL cholesterol calculated using the Arguello/NIH equation. Cholesterol, HDL 65 >=50 mg/dL 08/19/20 24 9:21 AM CDT [facility] Cholesterol, Non-HDL, Calculated [...] M.D. LAB BLOOD ADD-ON Final Res ult [facility] [address] [place] [id number], [facility] CNFL [facility] in [address] [phone] documented in this encounter Visit Diagnoses Diagnosis Hyperlipidemia documented in this encounter Additional Health Concerns Assessment Noted Time PHQ-9 Depression Total Score: 1 04/24/20 10:44 AM CDT documented as of this encounter Care Teams Remelter Relationship Specialty Start Date End Date Adri Davis M.D. [address] [place] [phone] PCP - General Family Medicine 10/28/22 documented as of this encounter
--- OUTSIDE RECORDS SUMMARY | 2024-07-14 12:21 | XMS_ITS | Encounter Summary ---
Author Organization [facility] Address [address] [place] [address] Care Team Providers Care Winemaker Name Role Phone Adri Davis M.D. Primary Care Provider +1- [phone] Reason for Referral * Outpatient (Routine) - Closed Specialty Diagnoses / Procedures Referred By Kenya nam Referred To Contact Diagnoses Screening Mammogram Average Risk Patient Procedures BI Breast Screening Bilateral with Tomosynthesis Adri Davis M.D. [address] [place] [phone] Phone: tel: fax: [facility] Referral ID Status Reason Start Date Expiration Date Visits Re quested Visits Authorized [id number] Closed 03/16/2024 03/16/2025 1 1 Reason for Visit * Outpatient (Routine) - Closed Specialty Diagnoses / Procedures Referred By Kenya nam Referred To Contact Diagnoses Screening Mammogram Average Risk Patient Procedures BI Breast Screening Bilateral with Tomosynthesis Adri Davis M.D. [address] [phone] Phone: tel: fax: [facility] Referral ID Status Reason Start Date Expiration Date Visits Re quested Visits Authorized [id number] Closed 03/16/2024 03/16/2025 1 1 Encounter Details Date Type Department Care Team (Latest Contact Info) Description 04/24/2024 8:36 AM CDT - 04/24/2024 11:59 PM CDT Hospital Encounter Department of Radiology in [address] [phone] Adri Davis M.D. [address] [place] [phone] Screening Mammogram Average Risk Patient Discharge Disposition: Home or Self Care Social History Tobacco Use Types Packs/Day Years Used Date Smoking Tobacco: Never Smokeless Tobacco: Never Alcohol Use Standard Drinks/Week Comments Yes 2 (1 standard drink = 0.6 oz pure alcohol) Sometimes have a glass of hard cider or beer. [facility] [employer] Answer Date Recorded In the past 12 months has [employer], gas, oil, or water [employer] threatened to shut off services in your [...] How often do you attend chur or zoroastrian services? 1 to 4 times per year 11/10/2022 Do you belong to any clubs o r organizations such as judaism groups, unions, fraternal or athletic groups, or [...] Answer Date Recorded PHQ-2 Score 0 04/24/2024 [facility] - Occupational Stress Questionnaire Answer Date [...] your living situation today? I have a [facility] place to live 04/18/2024 Education Answer Date Recorded What is the highest level of school you have completed or the highest degree you have received? 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 sertraline (ZOLOFT) 25 mg tablet Take 0.5 tablets (12.5 mg total) by mouth daily. 45 tablet 3 03/26/2023 4 documented as of this encounter Plan of Treatment Not on file documented as of this encounter Procedures Procedure Name Priority Date/Time Associated Diagnosis Comments BI BREAST SCREENING BILATERAL WITH TOMOSYNTHESIS RAD - Routine (most inpatients and all outpatients) 04/24/2024 8:49 AM CDT Screening Mammogram Average Risk Patient documented in this encounter Results * BI Breast Screening Bilateral with Tomosynthesis [...] ASSESSMENT: BI-RADS: 1: Negative. Adri Davis M.D. IMG BI PROCEDURES Final Re sult documented in this encounter Visit Diagnoses Diagnosis Screening Mammogram Average Risk Patient documented in this encounter Additional Health Concerns Assessment Noted Time PHQ-9 Depression Total Score: 1 04/24/20 24 10:44 AM CDT documented as of this encounter Care Teams Winemaker Relationship Specialty Start Date End Date Adri Davis M.D. [address] [place] [phone] PCP - General Family Medicine 10/28/22 documented as of this encounter
--- OUTSIDE RECORDS SUMMARY | 2024-07-14 12:21 | XMS_ITS | Encounter Summary ---
Author Organization [facility] Address [address] [place] [address] Care Team Providers Care Automatic Equipment Technician Name Role Phone Adri Davis M.D. Primary Care Provider +1- [phone] Encounter Details Date Type Department Care Team (Latest Contact Info) Description 05/09/2024 6:49 AM CDT - 05/09/2024 11:59 PM CDT Hospital Encounter Department of Laboratory Medicine and Pathology, [facility] in [place], [place] [address] [place] [phone] Hardy Willett M.D. [address] [place] [phone] Graves' Disease Discharge Disposition: Home or Self Care Social History Tobacco Use Types Packs/Day Years Used Date Smoking Tobacco: Never Smokeless Tobacco: Never Alcohol Use Standard Drinks/Week Comments Yes 2 (1 standard drink = 0.6 oz pure alcohol) Sometimes have a glass of hard cider or beer. [facility] Utilities Answer Date Recorded In the past 12 months has [facility] electric, gas, oil, or water company threatened [...] How often do you attend chur or scientology services? 1 to 4 times per year 11/10/2022 Do you belong to any clubs o r organizations such as sabianism groups, unions, fraternal or athletic groups, or [...] Answer Date Recorded PHQ-2 Score 0 04/24/2024 [facility] [place] of Occupat ional Health - Occupational Stress [...] your living situation today? I have a [facility] place to live 04/18/2024 Education Answer Date Recorded What is the highest level of school you have completed or the highest degree you have received? 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 90 tablet 3 04/25/2024 4 escitalopram (Lexapro) 5 mg tablet Take 1 tablet (5 mg total) by mouth daily. 90 tablet 3 05/12/2024 4 documented as of this encounter Plan of Treatment Not on file documented as of this encounter Procedures Procedure Name Priority Date/Time Associated Diagnosis Comments CBC WITH DIFFERENTIAL, B Routine 024 7:01 AM CDT Graves' Disease THYROID-STIMULATING IMMUNOGLOBULIN (TSI), S Routine 05/09/2024 7:00 AM CDT Graves' Disease THYROTROPIN RECEPTOR AB, S Routine 05/09/2024 7:00 AM CDT Graves' Disease ALANINE AMINOTRANSFERASE (ALT), S/P Routine 05/09/2024 7:00 AM CDT Graves' Disease THYROID-STIMULATING HORMONE-SENSITIVE (S-TSH) Routine 05/09/2024 7:00 AM CDT Graves' Disease T4 (THYROXINE), FREE, S Routine 05/09/20 24 7:00 AM CDT Graves' Disease ALKALINE PHOSPHATASE, S/P Routine 05/09/2024 7:00 AM CDT Graves' Disease documented in this encounter Results * CBC with Differential, Blood (05/09/2024 7:01 [...] M.D. LAB BLOOD ADD-ON Final Resu lt [facility] [address] [place] [address], [facility] [address] [place] [address] [facility] [place] [address] [place] [address] * Thyroid-Stimulating Immunoglobulin (TSI) (05/09/2024 7:00 AM CDT) [facility] Thyroid-Stimula ting Immunoglob, S <1.0 <=1.3 TSI index 05/22/2024 1:16 PM CDT [facility] Blood (Blood, Venous) 05/09/2024 7:00 AM CDT 05/09/2024 10:55 AM CDT Result [facility] Hardy Willett M.D. LAB BLOOD ADD-ON Final Resu lt Performing Organization Address City/[facility]/ZIP Co de Phone Number [facility] [address] [place] [address] [place] [address] * Thyrotropin Receptor Antibody (05/09/2024 7:00 AM CDT) [facility] Thyrotropin Receptor Ab, S <1.10 0.00 - 1.75 IU/L 05/09/2024 5:05 PM CDT [facility] Comment: ----ADDITIONAL INFORMATION---- At a decision [...] 7:00 AM CDT 05/09/2024 3:58 PM CDT us Hardy Willett M.D. LAB BLOOD ADD-ON Final Resu lt Performing Organization Address [facility]/ZIP Co de Phone Number [facility] [address] [place] [address] [facility] [address] [place] [address] * ALT (Alanine Aminotransferase) (05/09/2024 7:00 AM CDT) Alanine Aminotransferase (ALT), S 21 7 - 45 U/L 05/09/2024 8:27 AM CDT D[facility] Blood (Blood, Venous) 05/09/2024 7:00 AM CDT 05/09/2024 7:49 AM CDT Hardy Willett M.D. LAB BLOOD ADD-ON Final Resu lt Performing Organization Address City/[facility]/ZIP Co de Phone Number [facility] [address] [place] [address] * Alkaline Phosphatase (05/09/2024 7:00 AM CDT) Alkaline Phosphatase, S 54 35 - 104 U/L 05/09/2024 8:27 AM CDT DTL Blood (Blood, Venous) 05/09/2024 7:00 AM CDT 05/09/2024 7:49 AM CDT Hardy Willett M.D. LAB BLOOD ADD-ON Final [facility] [address] [place] [address] * S-TSH (Thyroid-Stimulating Hormone - Sensitive) (05/09/2024 7:00 AM CDT) TSH, Sensitive 2.5 0.3 - 4.2 mIU/L 05/09/2024 8:27 AM CDT [facility] Blood (Blood, Venous) 05/09/2024 7:00 AM CDT 05/09/2024 7:49 AM CDT Hardy Willett M.D. LAB BLOOD ADD-ON Final Resu lt Performing Organization Address City/[facility] Co de Phone Number [facility] [address] [place] [address], [facility] DTL [address] [address] * T4 (Thyroxine), Free (05/09/2024 7:00 AM CDT) T4 (Thyroxine), Free, S 1.1 0.9 - 1.7 ng/dL 05/09/2024 8:27 AM CDT DTL Blood (Blood, Venous) 05/09/2024 7:00 AM CDT 05/09/2024 7:49 AM CDT us Hardy Willett M.D. LAB BLOOD ADD-ON Final Resu Performing Organization Address [facility] Co de Phone Number [address] [address] [address] [address] documented in this encounter Visit Diagnoses Diagnosis Graves' Disease documented in this encounter Additional Health Concerns Assessment Noted Time PHQ-9 Depression Total Score: 1 04/24/20 24 10:44 AM CDT documented as of this encounter Care Teams Automatic Equipment Technician Relationship Specialty Start Date End Date Adri Davis M.D. [address] [place] [phone] PCP - General Family Medicine 10/28/22 documented as of this encounter
--- OUTSIDE RECORDS SUMMARY | 2024-07-14 12:21 | XMS_ITS | Clinical Summary ---
Author Organization [facility] Address [address] [place] [address] Care Team Providers Care Pumping Plant Operator Name Role Phone Beata Saldana MD Primary Care Provider [phone] Source Comments You are receiving this document as you are listed as the primary care provider,follow-up provider, or the patient has been referred to you for consultation.This is in compliance with the Medicare and[facility] Hospitalcaid EHR Incentive Program,which states Providers who transition their patient to another setting of careor provider of care or refers their patient to another provider of care shouldprovide summary care record for each transition of care or referral. [facility] Allergies Active Allergy Reactions Criticality Noted Date Comments Amoxicillin 04/13/2016 Penicillins 04/18/2003 PN: LW Reaction: Rash, Generalized Prednisone Headache 04/18/2003 Medications Medication Sig Dispensed Refills Start Date End Date Status olopatadine (PATANOL) 0.1 % eye drop solution Apply 1-2 drops to eye 2 times daily as needed. LW Addl Instr:Indicated for: Allergic Conjunctivitis 5 6 03/13/2005 Active Multiple Vitamins-Mineral s (MULTIVITAMIN OR) Take 1 tablet by mouth daily (every 24 hours). 100 13 11/27/2003 Active aspirin EC 81 MG enteric coated tablet Take 2 Tablets by mouth daily. 84 Tablet 11/22/2018 Active acetaminophen (TYLENOL) 500 MG tablet Take 2 Tablets by mouth three times a day. Maximum acetaminophen dose is 4000 mg in 24 hours. 100 Tablet 11/22/2018 Active celecoxib (CELEBREX) 100 MG capsule Take 1 Capsule by mouth two times a day. 30 Capsule 11/22/2018 Active docusate sodium (COLACE) 100 MG capsule Take 1 Capsule by mouth two times daily as needed for Constipation. 100 Capsule 11/22/2018 Active senna (SENOKOT) 8.6 MG tablet Take 1 Tablet by mouth at bedtime as needed for Constipation (Constipation (while on pain pills)). 100 Tablet 11/22/2018 Active aspirin EC 81 MG enteric coated tablet Take 2 Tablets by mouth daily. 84 Tablet 03/10/2019 Active docusate sodium (COLACE) 100 MG capsule Take 1 Capsule by mouth two times daily as needed for Constipation. 100 Capsule 03/10/2019 Active Active Problems Problem Noted Date Diagnosed Date Hyperlipidemia 03/13/2005 Overview (04/09/2016): LW Onset: 87Mvu24 Major depressive disorder, single episode 2003 Overview (04/28/2017): LW Onset: 61Boh52 ; Depression Major NOS Abnormal glandular Papanicolaou smear of cervix 11/27/2003 Overview (04/28/2017): LW Modifier: Cryo December 05, 2003 LW Onset: 12Kzf38 ; Pap Smear Abnormal Cervix Asthma 02/10/2003 Overview (04/28/2017): Asthma NOS Allergic rhinitis 02/10/2003 Overview (04/28/2017): Rhinitis Allergic NOS Resolved Problems Problem Noted Date Diagnosed Date Resolved Date Other synovitis and tenosyno vitis, multiple sites 03/13/2005 07/27/2006 Overview (04/28/2017): LW Onset: 29Oqv00 ; Tenosynovitis Wrist Obesity 03/13/2005 07/27/2006 Overview (04/28/2017): LW Onset: 34Lwg61 ; Overweight Immunizations Name Administration Dates Next Due Flu Vac Preserv Free (3+yrs) 06/13/2004 Influenza, Unspecified Formulation 08/06/1999 PPSV23 (Pneumovax) 09/08/1999 Td 04/19/2003 Social History Tobacco Use Types Packs/Day Years Used Date Smoking Tobacco: Never Smokeless Tobacco: Never Sex and Gender Information Value Date Recorded Sex Assigned at Not on file Gender Identity Not on file Sexual Orientation Not on file Last Filed Vital Signs Vital Sign Reading Time Taken Comments Blood Pressure 123/59 03/10/2019 11:29 AM CDT Pulse 90 03/10/2019 11:29 AM CDT Temperature 36.5 ??C (97.7 ??F) 03/10/2019 9:45 AM CD T Respiratory Rate 16 03/10/2019 11:2 9 AM CDT Oxygen Saturation 98% 03/10/2019 11: 29 AM CDT Inhaled Oxygen Concentration - - Weight 91.6 kg (201 lb 15.1 oz) 03/10/2019 6:35 AM CDT Height 170.2 cm (5' 7) 03/10/2019 6:35 AM CDT Body Mass Index 31.63 03/10/2019 6:35 AM CDT Plan of Treatment Health Maintenance Due Date Last Done Comments Colon Cancer Screening Plan Due 1967 Hep C Screening (Preventive Services) 1967 HIV Screening (Preventive Services) 1983 Adult Preventive Visit 1985 HepB (1) 1986 Cervical Cancer Screening Due 03/14/2005 03/13/2005, 06/13/2004, 10/15/2003, Additional history exists Cholesterol 2012 02/19/2005, 09/22/1999 Pneumococcal (2 - PCV) 06/22/2017 6, 09/08/1999, 09/08/1999 Mammogram 03/31/2023 03/31/2022, 01/07/2021 COVID-19 Vaccine ( season) 2024 06/27/2023, 02/11/2023, 05/30/2022, Additional history exists Influenza (#1) 2024 06/16/2022, 06/06, 06/14/2019, Additional history exists DTaP/Tdap/Td (3 - Tdap) 10/27/2028 10/27/19, 04/29/2009, 04/19/2003 HepA Aged Out 02/08/2013 No longer eligi ble based on patient's age to complete this topic Zoster/Shingles Completed 02/26/2020, 11/09/2019 Hib Aged Out No longer eligi ble based on patient's age to complete this topic IPV (Polio) Aged Out No longer eligi ble based on patient's age to complete this topic Infant RSV Aged Out No longer eligi ble based on patient's age to complete this topic MCV4 Aged Out No longer eligi ble based on patient's age to complete this topic Medical Devices Implanted Type Area Orthotic Finish Grinding Technician Device Identifier Shelf Expiration Date Model / Serial / Lot Shell Acet G7 Ltd 54f - [id number] Implanted:Qty : 1 on 11/22/2018 by Oumou Warren MD at [facility] [employer] Right: [employer] 08/04/2028 [id number] / / [id number] Scr Sftp 6.5x25 - [id number] Implanted:Qty : 1 on 11/22/2018 by Oumou Warren MD at [facility] [employer] Right: [employer] 06/05/2028 [id number] / / [id number] Scr Sftp 6.5x25 - [id number] Implanted:Qty : 1 on 11/22/2018 by Oumou Warren MD at [facility] [employer] Right: [employer] 08/05/2028 [id number] / / [id number] Liner Neut G7 E1 36mm F - [id number] Implanted:Qty : 1 on 11/22/2018 by Oumou Warren MD at [facility] [employer] Right: [employer] 08/21/2023 [id number] / / [id number] Stem Prim Tprlc 9x137 - [id number] Implanted:Qty : 1 on 11/22/2018 by Oumou Warren MD at [facility] [employer] Right: [employer] 09/03/2028 [id number] / / [id number] Hd Biolox Cer 36mm Neck Std - [id number] Implanted:Qty : 1 on 11/22/2018 by Oumou Warren MD at [facility] [employer] Right: [employer] 08/23/[id number] / / [id number] Scr Sftp 6.5x20 - [id number] Implanted:Qty : 1 on 03/10/2019 by Oumou Warren MD at [facility] [employer] Left: [employer] 03/05/2029 [id number] / 0 / [id number] Scr Sftp 6.5x25 - [id number] Implanted:Qty : 1 on 03/10/2019 by Oumou Warren MD at [facility] [employer] Left: [employer] 04/05/2028 [id number] / 0 / [id number] Stem Prim Tprlc 9x137 - [id number] Implanted:Qty : 1 on 03/10/2019 by Oumou Warren MD at [facility] [employer] Left: [employer] 12/12/2028 [id number] / 0 / [id number] Cer Bioloxd Mod Hd 36mm +3nk - [id number] Implanted:Qty : 1 on 03/10/2019 by Oumou Warren MD at [facility] [employer] Left: [employer] 09/23/2028 [id number] / 0 / [id number] Drill Bit Rnglc+ Acet 3.2x20 - [id number] Implanted:Qty : 1 on 03/10/2019 by Oumou Warren MD at [facility] [employer] Left: [employer] 02/13/2029 [id number] / 0 / [id number] Shell Acet G7 Ltd 54f - [id number] Implanted:Qty : 1 on 03/10/2019 by Oumou Warren MD at [facility] [employer] Left: [employer] 11/22/2028 [id number] / 0 / [id number] Liner Neut G7 E1 36mm F - [id number] Implanted:Qty : 1 on 03/10/2019 by Oumou Warren MD at [facility] [employer] Left: [employer] 12/02/2023 [id number] / 0 / [id number] Procedures Procedure Name Priority Date/Time Associated Diagnosis Comments ANATOMICAL PATH LIQUID BASED Routine 03/13/2005 2:03 PM CDT LIPID PANEL & DIRECT LDL (IF NEEDED) Routine 02/19/2005 11:01 AM CDT from Last 3 Months or Most Recently Relevant to Health Maintenance Results * Pap Smear (03/13/2005 2:03 PM CDT) [facility] PAP Smear Liquid Based SEE TEXT No normal range HP CONVERSION Comment: Patient: LISA MELVIN ? CERVICAL CYTOLOGY REPORT Pathology # ??[id number] ?Date Obtained: ? Date Received: CYTOLOGIC IMPRESSION: Negative for intraepithelial lesion or malignancy. ? ADDITIONAL DATA LMP: CLINICAL HIST LIQUID BASED PAP CERVICAL SPECIMEN ADEQUACY: ?? Satisfactory. ENDOCERVICAL CELLS: ??Present. Verified 03/24/05 by: ??Cuco Davey M.D. ?(electronic signature) 03/13/2005 2:03 PM CDT Mami Flores MD LAB_1 HP CONVERSION * (ABNORMAL) Lipid Panel and Direct LDL(If Needed) (02/19/2005 11:01 AM CDT) [facility] Cholesterol/HDL Ratio Screen 4.5 No normal range HP CONVERSION Cholesterol 209(H) <200 mg/dL HP CONVERSION Comment: Borderline high: 200-239 mg/dL High risk: >240 mg/dL HDL Cholesterol 46 40 - 60 mg/dL HP CONVERSION Triglycerides 68 0 - 149 mg/dL HP CONVERSION LDL Calculated 149(H) 0 - 130 mg/dL HP CONVERSION Comment: Desirable: <130 mg/dL (<100 if diabetes or coronary heart disease) Borderline high: 130-159 mg/dL High risk: >159 mg/dL 02/19/2005 11:0 1 AM CDT Mami Flores MD LAB_1 HP CONVERSION from Last 3 Months or Most Recently Relevant to Health Maintenance Advance Directives * Full Code (Latest Code Status on File) Date Activated Date Inactivated Comments 03/10/2019 6:50 AM 03/10/2019 1:45 PM Full code in e ffect for 30 days * Full Code Date Activated Date Inactivated Comments 11/22/2018 7:24 AM 11/22/2018 4:51 PM Full code in effect for 30 days Care Teams Pumping Plant Operator Relationship Specialty Start Date End Date Beata Saldana MD PCP - General Family Practice 03/10/19
--- OUTSIDE RECORDS SUMMARY | 2024-07-14 12:21 | XMS_ITS | Encounter Summary ---
Author Organization [facility] Address [address] [place] [address] Care Team Providers Care Stock Patcher Name Role Phone Adri Davis M.D. Primary Care Provider +1- [phone] Reason for Visit * Reason Comments Med Refill Encounter Details Date Type Department Care Team (Late st Contact Info) Description 05/02/2024 Refill Department of Family Medicine, [facility], in [address] [phone] Adri Davis M.D. [address] [phone] Med Refill Social History Tobacco Use Types Packs/Day Years Used Date Smoking Tobacco: Never Smokeless Tobacco: Never Alcohol Use Standard Drinks/Week Comments Yes 2 (1 standard drink = 0.6 oz pure alcohol) Sometimes have a glass of hard cider or beer. [facility] Utilities Answer Date Recorded In the past 12 months has [facility] [employer], gas, oil, or water [employer] threatened to shut off services in your [...] often do you attend chur ch or restoration services? 1 to 4 times per year 11/10/2022 Do you belong to any clubs o r organizations such as presybeterian groups, unions, fraternal or athletic groups, or [...] Answer Date Recorded PHQ-2 Score 0 04/24/2024 [facility] [place] of Occupat ional Health - Occupational Stress [...] your living situation today? I have a [facility] place to live 04/18/2024 Education Answer Date Recorded What is the highest level of school you have completed or the highest degree you have received? 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 Escitalopram 5 mg tab- Patient has cornstarch allergy - please consider different med Pharmacy (include location): [facility] [place], [place] documented in this encounter Plan of Treatment Not on file documented as of this encounter Visit Diagnoses Not on filedocumented in this encounter Additional Health Concerns Assessment Noted Time PHQ-9 Depression Total Score: 1 04/24/20 24 10:44 AM CDT documented as of this encounter Care Teams Stock Patcher Relationship Specialty Start Date End Date Adri Davis M.D. [address] [place] [phone] PCP - General Family Medicine 10/28/22 documented as of this encounter
== END 2024-07-14 12:20 | disposition home or self-care (01) ==
LOC: ED 12:18
PROVIDERS: Emergency Provider Family Medicine; PCP Family Medicine
DX: R11.2 Nausea with vomiting, unspecified (principal); S09.90XA Unspecified injury of head, initial encounter
CPT/HCPCS: 94761; 99283; 99284; A9270